=== PATIENT | male | born 1955 | race Caucasian/White ===

== ENCOUNTER 2020-10-25 14:09 | Inpatient (IN) | payer OTHER ==
[~2020-10-25] VITALS: Ht 182.9 cm; Wt 63.6 kg
[~2020-10-25 14:09] MED LIST: ALBU6.7H9 INH; ASPI81TA52 PO; BUDE10.2 INH; GEMF600T89 PO; MAGN400C PO; OMEP20CA15 PO; SPIIN INH
[2020-10-25 15:43] LABS: BASOPHILS # (AUTO) 0.1 X10'3 (0-0.2); BASOPHILS % (AUTO) 0.6 % (0-1); EOSINOPHILS # (AUTO) 0.2 X10'3 (0-0.9); EOSINOPHILS % (AUTO) 2.3 % (0-6); HEMATOCRIT 46.9 % (42.0-52.0); HEMOGLOBIN 16.3 g/dl (14.0-17.9); LYMPHOCYTES # (AUTO) 1.6 X10'3 (1.1-4.8); LYMPHOCYTES % (AUTO) 17.5 % (21-51); MEAN CORPUSCULAR HEMOGLOBIN 35.5 PG (27.0-31.0); MEAN CORPUSCULAR HGB CONC 34.7 g/dL (33.0-36.5); MEAN CORPUSCULAR VOLUME 102.4 FL (78-98); MEAN PLATELET VOLUME 8.6 FL (7.4-10.4); MONOCYTES # (AUTO) 0.9 X10'3 (0-0.9); MONOCYTES % (AUTO) 10.5 % (2-12); NEUTROPHILS # (AUTO) 6.2 X10'3 (1.8-7.7); NEUTROPHILS % (AUTO) 69.1 % (42-75); PLATELET COUNT 146 X10'3 (140-440); RED BLOOD COUNT 4.58 X10'6 (4.70-6.10); RED CELL DISTRIBUTION WIDTH 16.2 % (11.5-14.5)
[2020-10-25 15:57] LABS: ALBUMIN 3.2 G/DL (3.4-5.0); ANION GAP 8 (8-16); BLOOD UREA NITROGEN 9 MG/DL (7-18); BUN/CREATININE RATIO 9.1 (5.4-32.0); CALCIUM 9.2 MG/DL (8.5-10.1); CHLORIDE 95 MMOL/L (99-107); CREATININE 0.99 MG/DL (0.60-1.10); GLUCOSE 161 MG/DL (70-104); MAGNESIUM 1.8 MG/DL (1.5-2.4); SODIUM 131 MMOL/L (135-145); TOTAL CARBON DIOXIDE 27.7 MMOL/L (24-32); eGFR 75 ML/MIN
[2020-10-25 16:02] LABS: POTASSIUM 2.2 MMOL/L (3.5-5.1)
[2020-10-25] MEDS ORDERED: potassium Cl 20 mEq SR tablet PO STA (16:20)
[2020-10-25] MEDS ORDERED: potassium Cl 10 mEq/100mL bag IV ONE (16:20)
[2020-10-25] MEDS ORDERED: [UNRECOGNIZED DRUG - CODE] PO (16:55)
[2020-10-25] MEDS ORDERED: IBUP-1986 PO (16:55)
[2020-10-25] MEDS: potassium Cl 10 mEq/100mL bag IV SCH ×2 (19:02→20:13)
--- NOTE | 2020-10-25 19:22 | NUR ---
1st bag of K 10 meq infusing, 2nd ordered. Pt has. received 40 meq already po. Sarah at bedside. Pt awaiting hospitalist.
--- NOTE | 2020-10-25 21:07 | NUR ---
[facility] hospitalist. at bedside. just comleted the 2nd back of k 10 meq ivpb. current vss.
--- NOTE | 2020-10-25 21:17 | NUR ---
VERBAL RECEIVED FORM DR. HEBERT FOR IBUPROFEN 800 MG X1 NOW. PT TAKES THIS SCHEDULED AT HOME PER .
[2020-10-25] MEDS ORDERED: ibuprofen tablet 400 MG TABLET PO ONE (21:20)
[2020-10-25] MEDS ORDERED: mag hydrox/Alum hydrox/simeth 30ml oral suspension PO PRN (22:35)
[2020-10-25] MEDS ORDERED: magnesium 2GM in 50ml NS 50 ML IV PRN (22:35)
[2020-10-25] MEDS ORDERED: magnesium 4gm in 100ml NS 100 ML IV PRN (22:35)
[2020-10-25] MEDS ORDERED: potassium Cl 40MEQ/1/2NS 520ml 520 ML IV PRN ×2 (22:35)
--- NOTE | 2020-10-25 22:39 | NUR ---
ADMISSION ORDERS WRITTEN BY DR. GARCIA. IS AT BEDSIDE. PT WITH STABLE VS. NOW AWAITING IPA.
[2020-10-25] MEDS ORDERED: albuterol 2.5 MG/3 ML nebule NEB PRN (23:00)
[2020-10-25] MEDS: normal saline 1000ml 1,000 ML IV SCH (23:45)
[2020-10-26 00:30] VITALS: BP 115/73
[2020-10-26] MEDS: normal saline 1000ml 1,000 ML IV SCH ×2 (00:30→13:00)
[2020-10-26 01:37] LABS: ANION GAP 10 (8-16); BLOOD UREA NITROGEN 8 MG/DL (7-18); BUN/CREATININE RATIO 8.2 (5.4-32.0); CALCIUM 8.5 MG/DL (8.5-10.1); CHLORIDE 99 MMOL/L (99-107); CREATININE 0.98 MG/DL (0.60-1.10); GLUCOSE 128 MG/DL (70-104); LIPASE 862 U/L (73-393); MAGNESIUM 1.5 MG/DL (1.5-2.4); SODIUM 136 MMOL/L (135-145); TOTAL CARBON DIOXIDE 26.9 MMOL/L (24-32); eGFR 76 ML/MIN
[2020-10-26 01:40] LABS: BASOPHILS # (AUTO) 0.1 X10'3 (0-0.2); BASOPHILS % (AUTO) 1.1 % (0-1); EOSINOPHILS # (AUTO) 0.2 X10'3 (0-0.9); EOSINOPHILS % (AUTO) 2.4 % (0-6); HEMATOCRIT 42.3 % (42.0-52.0); HEMOGLOBIN 14.9 g/dl (14.0-17.9); LYMPHOCYTES % (AUTO) 25.1 % (21-51); MEAN CORPUSCULAR HEMOGLOBIN 35.4 PG (27.0-31.0); MEAN CORPUSCULAR HGB CONC 35.3 g/dL (33.0-36.5); MEAN CORPUSCULAR VOLUME 100.3 FL (78-98); MEAN PLATELET VOLUME 8.8 FL (7.4-10.4); MONOCYTES % (AUTO) 11.8 % (2-12); NEUTROPHILS # (AUTO) 4.8 X10'3 (1.8-7.7); NEUTROPHILS % (AUTO) 59.6 % (42-75); PLATELET COUNT 130 X10'3 (140-440); RED BLOOD COUNT 4.22 X10'6 (4.70-6.10); RED CELL DISTRIBUTION WIDTH 16.7 % (11.5-14.5); WHITE BLOOD COUNT 8.1 X10'3 (4.5-11.0)
[2020-10-26 01:41] LABS: POTASSIUM 2.3 MMOL/L (3.5-5.1)
--- NOTE | 2020-10-26 01:42 | NUR ---
RECEIVED PATIENT TO ROOM 4023B AT 0030 AND ASSUMED CARE. POTASSIUM DRAWN SOON I ASSUMED CARE. LAB VALUE REPORTED CRITICAL TO ME AT 0145 AT 2.3. WILL REPLACE PER PROTOCOL.
[2020-10-26] MEDS: potassium Cl 20 mEq SR tablet PO PRN ×6 (01:47→21:39)
[2020-10-26 06:00] VITALS: BP 88/44
--- NOTE | 2020-10-26 06:52 | NUR ---
Patient in room ORTHO 4023. I have received report from Jerri ADAMES and had the opportunity to ask questions and assume patient care.
[2020-10-26] MEDS: docusate sod 100mg capsule PO SCH ×3 (07:56→20:00)
[2020-10-26] MEDS: K and/or MAG REPLACEMENT MC SCH ×2 (07:59→21:00)
[2020-10-26] MEDS ORDERED: PROPRANOLOL HCL 120 MG PO SCH (08:00)
[2020-10-26] MEDS ORDERED: heparin, porcine 5000 units/ml vial SQ SCH (08:00)
[2020-10-26] MEDS: budesonide 0.5mg/2ml UD nebule IH SCH ×2 (09:00→21:52)
[2020-10-26 09:19] LABS: OCCULT BLOOD STOOL NEGATIVE (Neg)
[2020-10-26 10:34] LABS: POTASSIUM 2.7 MMOL/L (3.5-5.1)
[2020-10-26] MEDS ORDERED: diatr meglu/diatrizoate 30ml oral sol.-(3 dose) bottle PO ONE ×3 (11:35→17:35)
[2020-10-26] MEDS: albuterol 2.5 MG/3 ML nebule NEB SCH ×2 (14:21→21:52)
[2020-10-26] MEDS ORDERED: iohexol 300mg/ml 100ml inj. ONE (16:35)
[2020-10-26] MEDS ORDERED: iohexol 300 MG/1 ML 50ml polymer ONE (16:35)
[2020-10-26] MEDS ORDERED: PERFLUTREN PROTEIN-A MICROSPHR (Optison) 0.22 MG/ML 3ML VIAL IV ONE (16:40)
[2020-10-26] MEDS ORDERED: thiamine inj. 100 MG in normal saline 100ml IV soln 99 ML IV ONE (17:00)
[2020-10-26] MEDS: loperamide 2mg capsule PO PRN ×2 (17:18→23:01)
[2020-10-26 17:23] LABS: MAGNESIUM 1.7 MG/DL (1.5-2.4)
[2020-10-26] MEDS: potassium Cl 20mEq in NS 1,000 ML IV SCH (17:55)
[2020-10-26 18:00] VITALS: BP 125/59
[2020-10-26] MEDS ORDERED: heparin 10,000 units/1 ML INJ IV PRN (18:05)
[2020-10-26] MEDS ORDERED: heparin 10,000 units/1 ML INJ IV ONE (18:05)
[2020-10-26 18:19] LABS: HIV ANTIBODY 1&2 RAPID NON-REACTIVE (Neg)
[2020-10-26 18:28] LABS: % IRON SATURATION 50 % (11-46); IRON 103 UG/DL (53-167); TOTAL IRON BINDING CAPACITY 205 UG/DL (259-388)
--- NOTE | 2020-10-26 18:48 | NUR ---
Problems reprioritized. Patient report given, questions answered & plan of care reviewed with Esteban ADAMES.
[2020-10-26] MEDS ORDERED: loperamide 2mg capsule PO ONE (19:30)
[2020-10-26 19:38] LABS: CLARITY,URINE CLEAR (Clear); COLOR,URINE YELLOW (Yellow); GLUCOSE, URINE NEGATIVE (Neg); KETONES,URINE NEGATIVE (Neg); LEUKOCYTE ESTERASE ,URINE NEGATIVE (Neg); NITRITES, URINE NEGATIVE (Neg); OCCULT BLOOD,URINE SMALL (Neg); PH,URINE 7.5 (4.8-8.0); PROTEIN,URINE NEGATIVE (Neg); UROBILINOGEN,URINE 0.2 E.U/dL (0.2-1.0)
[2020-10-26 19:46] LABS: UA COLLECTION TYPE VOIDED
[2020-10-26 19:47] LABS: BACTERIA,URINE NONE SEEN /HPF (Neg); RBC,URINE 0-2 /HPF (0-2); SQUAMOUS EPITHELIAL CELL,UR FEW /LPF (FEW); WBC,URINE 0-4 /HPF (0-4)
--- NOTE | 2020-10-26 20:30 | NUR ---
labs drawn for PTT prior to heparin start. hemolized in lab. need to redraw. no baseline levels noted. will wait for accurate PTT. went home. educated on heparin. verbalized understanding of bleeding risk. stool and urine samples obtained.
[2020-10-26] MEDS: heparin 25,000 UNIT/250ml bag 250 ML IV SCH (21:30)
[2020-10-26] MEDS: thiamine 100mg tablet PO SCH (21:38)
[2020-10-26 22:46] VITALS: BP 117/67
[2020-10-27] MEDS: potassium Cl 20 mEq SR tablet PO PRN ×4 (01:45→23:39)
[2020-10-27] MEDS: potassium Cl 20mEq in NS 1,000 ML IV SCH ×3 (01:51→20:57)
[2020-10-27] MEDS: albuterol 2.5 MG/3 ML nebule NEB SCH ×4 (03:38→20:15)
[2020-10-27 04:00] LABS: BASOPHILS # (AUTO) 0.1 X10'3 (0-0.2); BASOPHILS % (AUTO) 1.4 % (0-1); EOSINOPHILS # (AUTO) 0.2 X10'3 (0-0.9); EOSINOPHILS % (AUTO) 2.6 % (0-6); HEMATOCRIT 42.8 % (42.0-52.0); HEMOGLOBIN 14.6 g/dl (14.0-17.9); LYMPHOCYTES # (AUTO) 1.6 X10'3 (1.1-4.8); LYMPHOCYTES % (AUTO) 19.3 % (21-51); MEAN CORPUSCULAR HEMOGLOBIN 35.2 PG (27.0-31.0); MEAN CORPUSCULAR HGB CONC 34.1 g/dL (33.0-36.5); MEAN CORPUSCULAR VOLUME 103.3 FL (78-98); MEAN PLATELET VOLUME 9.1 FL (7.4-10.4); MONOCYTES # (AUTO) 0.8 X10'3 (0-0.9); MONOCYTES % (AUTO) 9.9 % (2-12); NEUTROPHILS # (AUTO) 5.4 X10'3 (1.8-7.7); NEUTROPHILS % (AUTO) 66.8 % (42-75); PLATELET COUNT 122 X10'3 (140-440); RED BLOOD COUNT 4.15 X10'6 (4.70-6.10); RED CELL DISTRIBUTION WIDTH 16.6 % (11.5-14.5)
[2020-10-27 04:19] LABS: ALANINE AMINOTRANSFERASE 26 U/L (12-78); ALBUMIN 3.1 G/DL (3.4-5.0); ALKALINE PHOSPHATASE 67 IU/L (46-116); ANION GAP 12 (8-16); ASPARTATE AMINO TRANSFERASE 39 U/L (10-37); BILIRUBIN,TOTAL 0.7 MG/DL (0.1-1.0); BLOOD UREA NITROGEN 5 MG/DL (7-18); BUN/CREATININE RATIO 6.3 (5.4-32.0); CALCIUM 7.9 MG/DL (8.5-10.1); CHLORIDE 109 MMOL/L (99-107); CREATININE 0.79 MG/DL (0.60-1.10); GLUCOSE 92 MG/DL (70-104); MAGNESIUM 1.4 MG/DL (1.5-2.4); POTASSIUM 3.2 MMOL/L (3.5-5.1); SODIUM 141 MMOL/L (135-145); TOTAL CARBON DIOXIDE 19.6 MMOL/L (24-32); TOTAL PROTEIN 6.2 G/DL (6.4-8.2); eGFR > 90 ML/MIN
[2020-10-27] MEDS: loperamide 2mg capsule PO PRN ×4 (05:45→23:38)
[2020-10-27 06:00] VITALS: BP 114/71
--- NOTE | 2020-10-27 06:46 | NUR ---
reported to days. noted pt PTT came to 40 - so ok to start heparin 3 units lower. noted to day RN. awaiting stool results.
[2020-10-27] MEDS: budesonide 0.5mg/2ml UD nebule IH SCH ×2 (07:00→20:15)
--- NOTE | 2020-10-27 07:00 | NUR ---
PT. REFUSED MORNING svn. STATES HE DOESN'T NEED ONE AT THIS TIME
[2020-10-27] MEDS: docusate sod 100mg capsule PO SCH ×2 (08:00→20:00)
[2020-10-27] MEDS: thiamine 100mg tablet PO SCH ×2 (08:40→19:59)
[2020-10-27] MEDS: propranolol LA 60 MG cap.SA.24H PO SCH (08:40)
[2020-10-27] MEDS: multivitamins, therapeutics tablet PO SCH (08:40)
[2020-10-27] MEDS: folic acid 1mg tablet PO SCH (08:40)
[2020-10-27] MEDS: K and/or MAG REPLACEMENT MC SCH ×2 (08:47→20:00)
[2020-10-27 10:00] VITALS: BP 113/67
[2020-10-27] MEDS: magnesium Cl slow-release 64mg tablet PO PRN ×2 (10:39→20:00)
[2020-10-27 11:05] LABS: CARCINOEMBRYONIC ANTIGEN 11.2 ng/mL (0.0-4.7); PSA, ULTRASENSITIVE W/O SERIAL 0.84 ng/mL (0.000-4.000)
[2020-10-27 11:15] LABS: C DIFF ANTIGEN NEGATIVE (NEGATIVE); C DIFF SPECIMEN=DIARRHEA? ACCEPTABLE; C DIFFICILE TOXINS A&B NEGATIVE (Neg)
[2020-10-27] MEDS: acetaminophen 325mg tablet PO PRN ×3 (11:54→23:39)
--- NOTE | 2020-10-27 16:29 | NUR ---
Nutrition consult: Pt reports wt loss with decreased appetite per H&P/MD note however denied wt loss or decreased appetite per malnutrition risk screen with RN. Pt seen at bedside with SO present reports UBW 170 lbs with ABW 140-145 lbs, though pt unsure of when wt was last obtained. Current documented wt in EMR is not scaled and only scaled wt hx in EMR is 162 lbs in 2015. Pt reports poor appetite for a few months [employer] though states appetite is improving. Pt on a regular diet with 100% PO intake of two most recent meals. Pt with no visible significant fat or muscle wasting. No documented decrease in muscle strength or edema. Pt currently lacks a minimum of two criteria for malnutrition. RD discussed options for increasing PO intake including ONS recommendations. Pt verbalized understanding and declined ONS coupons at this time stating his son will be getting Boost from [employer] for him. Pt denies food preferences, food allergies, or difficulty chewing/swallowing. Diarrhea resolving per pt. RD contact information provided and pt encouraged to reach out if needed. Will continue to follow. Addendum: 10/27/20 at 1631 [address] Amended: Links added.
[2020-10-27] MEDS: heparin 25,000 UNIT/250ml bag 250 ML IV SCH (16:49)
[2020-10-27 18:00] VITALS: BP 111/68
--- NOTE | 2020-10-27 18:30 | NUR ---
Patient in room ORTHO 4023. I have received report from Jocelyn ADAMES and had the opportunity to ask questions and assume patient care.
--- NOTE | 2020-10-27 18:43 | NUR ---
PAGER ID: [phone] MESSAGE: Jocelyn [email or web address] daisy Mr Olmstead in [id number]- do you want to continue the tele order? it was for 24 hours Addendum: 10/27/20 at 1843 by Kamla De La Torre RN per Manuel please keep tele on.
[2020-10-27] MEDS: apixaban 5mg tablet PO SCH (19:59)
[2020-10-27 22:00] VITALS: BP 95/60
[2020-10-28] MEDS: albuterol 2.5 MG/3 ML nebule NEB SCH ×4 (02:00→20:58)
[2020-10-28] MEDS: potassium Cl 20mEq in NS 1,000 ML IV SCH (05:43)
[2020-10-28] MEDS: acetaminophen 325mg tablet PO PRN ×3 (05:57→20:25)
[2020-10-28] MEDS: loperamide 2mg capsule PO PRN ×3 (05:57→20:24)
[2020-10-28 06:00] VITALS: BP 105/59
--- NOTE | 2020-10-28 06:27 | NUR ---
Problems reprioritized. Patient report given, questions answered & plan of care reviewed with Zafar ADAMES and Latoya ADAMES.
[2020-10-28] MEDS: folic acid 1mg tablet PO SCH (07:11)
[2020-10-28] MEDS: multivitamins, therapeutics tablet PO SCH (07:12)
[2020-10-28] MEDS: apixaban 5mg tablet PO SCH ×2 (07:12→19:16)
[2020-10-28] MEDS: propranolol LA 60 MG cap.SA.24H PO SCH (07:13)
[2020-10-28] MEDS: thiamine 100mg tablet PO SCH ×2 (07:13→19:16)
[2020-10-28] MEDS: docusate sod 100mg capsule PO SCH ×2 (07:19→19:26)
[2020-10-28 07:32] LABS: BASOPHILS # (AUTO) 0.1 X10'3 (0-0.2); EOSINOPHILS # (AUTO) 0.2 X10'3 (0-0.9); EOSINOPHILS % (AUTO) 3.5 % (0-6); HEMOGLOBIN 14.1 g/dl (14.0-17.9); LYMPHOCYTES # (AUTO) 1.8 X10'3 (1.1-4.8); LYMPHOCYTES % (AUTO) 26.5 % (21-51); NEUTROPHILS # (AUTO) 3.9 X10'3 (1.8-7.7); PLATELET COUNT 138 X10'3 (140-440)
[2020-10-28 07:34] LABS: BASOPHILS % (AUTO) 1.4 % (0-1); MEAN CORPUSCULAR HEMOGLOBIN 35.5 PG (27.0-31.0); MEAN CORPUSCULAR HGB CONC 33.5 g/dL (33.0-36.5); MEAN CORPUSCULAR VOLUME 105.9 FL (78-98); MEAN PLATELET VOLUME 9.2 FL (7.4-10.4); MONOCYTES # (AUTO) 0.7 X10'3 (0-0.9); MONOCYTES % (AUTO) 10.7 % (2-12); NEUTROPHILS % (AUTO) 57.9 % (42-75); RED BLOOD COUNT 3.97 X10'6 (4.70-6.10); RED CELL DISTRIBUTION WIDTH 16.9 % (11.5-14.5); WHITE BLOOD COUNT 6.8 X10'3 (4.5-11.0)
[2020-10-28] MEDS: budesonide 0.5mg/2ml UD nebule IH SCH ×2 (07:54→20:58)
[2020-10-28 07:56] LABS: ALANINE AMINOTRANSFERASE 27 U/L (12-78); ALBUMIN 2.7 G/DL (3.4-5.0); ALBUMIN/GLOBULIN RATIO 0.9 (1.1-1.5); ALKALINE PHOSPHATASE 52 IU/L (46-116); ANION GAP 12 (8-16); ASPARTATE AMINO TRANSFERASE 32 U/L (10-37); BILIRUBIN,TOTAL 0.5 MG/DL (0.1-1.0); BLOOD UREA NITROGEN 3 MG/DL (7-18); BUN/CREATININE RATIO 4.3 (5.4-32.0); CALCIUM 7.7 MG/DL (8.5-10.1); CHLORIDE 111 MMOL/L (99-107); GLUCOSE 86 MG/DL (70-104); LIPASE 1330 U/L (73-393); MAGNESIUM 1.4 MG/DL (1.5-2.4); POTASSIUM 3.7 MMOL/L (3.5-5.1); SODIUM 141 MMOL/L (135-145); TOTAL PROTEIN 5.8 G/DL (6.4-8.2); eGFR > 90 ML/MIN
[2020-10-28] MEDS: magnesium Cl slow-release 64mg tablet PO PRN ×2 (08:32→19:21)
[2020-10-28] MEDS: K and/or MAG REPLACEMENT MC SCH ×2 (08:33→20:00)
[2020-10-28 10:00] VITALS: BP 114/72
[2020-10-28] MEDS: sodium bicarbonate (8.4%) inj. 100 MEQ in dextrose 5%-water 1,000 ML IV SCH ×2 (12:18→22:19)
[2020-10-28 15:25] LABS: HBSAG SCREEN Negative (Negative); HEP A AB, IGM Negative (Negative); HEPATITIS C ANTIBODY >11.0 s/co ratio (0.0-0.9)
[2020-10-28 18:00] VITALS: BP 122/73
--- NOTE | 2020-10-28 18:31 | NUR ---
Problems reprioritized. Patient report given, questions answered & plan of care reviewed with Kimberly ADAMES.
--- NOTE | 2020-10-28 19:06 | NUR ---
Patient in room ORTHO 4023. I have received report from DELMI RN'S and had the opportunity to ask questions and assume patient care.
[2020-10-28 22:00] VITALS: BP 120/66
[2020-10-29] MEDS: albuterol 2.5 MG/3 ML nebule NEB SCH ×4 (02:00→20:00)
[2020-10-29 06:00] VITALS: BP 100/49
[2020-10-29 06:28] LABS: BASOPHILS # (AUTO) 0.1 X10'3 (0-0.2); BASOPHILS % (AUTO) 1.9 % (0-1); EOSINOPHILS # (AUTO) 0.2 X10'3 (0-0.9); EOSINOPHILS % (AUTO) 3.7 % (0-6); HEMATOCRIT 36.8 % (42.0-52.0); HEMOGLOBIN 12.7 g/dl (14.0-17.9); LYMPHOCYTES # (AUTO) 1.4 X10'3 (1.1-4.8); MEAN CORPUSCULAR HEMOGLOBIN 35.8 PG (27.0-31.0); MEAN CORPUSCULAR HGB CONC 34.5 g/dL (33.0-36.5); MEAN CORPUSCULAR VOLUME 103.7 FL (78-98); MEAN PLATELET VOLUME 8.9 FL (7.4-10.4); MONOCYTES # (AUTO) 0.7 X10'3 (0-0.9); MONOCYTES % (AUTO) 12.3 % (2-12); NEUTROPHILS # (AUTO) 3.5 X10'3 (1.8-7.7); NEUTROPHILS % (AUTO) 58.1 % (42-75); PLATELET COUNT 116 X10'3 (140-440); RED BLOOD COUNT 3.55 X10'6 (4.70-6.10); RED CELL DISTRIBUTION WIDTH 16.8 % (11.5-14.5)
--- NOTE | 2020-10-29 06:49 | NUR ---
Patient in room ORTHO 4023. I have received report from ZACARIAS JUNE and had the opportunity to ask questions and assume patient care.
--- NOTE | 2020-10-29 06:52 | NUR ---
Problems reprioritized. Patient report given, questions answered & plan of care reviewed with DAREN & SOBIA RN'S.
--- NOTE | 2020-10-29 06:59 | NUR ---
Patient in room ORTHO 4023B. I have received report from ZACARIAS Harris and had the opportunity to ask questions and assume patient care. Mariano Huizar RN will provide primary care. I will monitor all care and assist when needed.
[2020-10-29 07:00] LABS: ALANINE AMINOTRANSFERASE 21 U/L (12-78); ALBUMIN 2.3 G/DL (3.4-5.0); ALBUMIN/GLOBULIN RATIO 0.9 (1.1-1.5); ALKALINE PHOSPHATASE 44 IU/L (46-116); ANION GAP 9 (8-16); ASPARTATE AMINO TRANSFERASE 19 U/L (10-37); BILIRUBIN,TOTAL 0.5 MG/DL (0.1-1.0); BLOOD UREA NITROGEN 2 MG/DL (7-18); BUN/CREATININE RATIO 3.2 (5.4-32.0); CALCIUM 7.4 MG/DL (8.5-10.1); CHLORIDE 109 MMOL/L (99-107); CHOL/HDL RATIO 1.8 (0.00-4.99); CHOLESTEROL 98 MG/DL (0-200); CREATININE 0.62 MG/DL (0.60-1.10); GLUCOSE 106 MG/DL (70-104); HDL CHOLESTEROL 54 MG/DL (35-60); LDL CHOLESTEROL 33 MG/DL (50-100); LIPASE 927 U/L (73-393); MAGNESIUM 1.2 MG/DL (1.5-2.4); POTASSIUM 3.3 MMOL/L (3.5-5.1); SODIUM 140 MMOL/L (135-145); TOTAL CARBON DIOXIDE 21.8 MMOL/L (24-32); TOTAL PROTEIN 4.8 G/DL (6.4-8.2); TRIGLYCERIDES 54 MG/DL (20-135); eGFR > 90 ML/MIN
--- NOTE | 2020-10-29 07:54 | NUR ---
Page Sent PAGER ID: [phone] MESSAGE: Regarding 4023B- Jer Olmstead+ 3.3 Mag 1.2- No Protocol orders in place. Thanks!
[2020-10-29] MEDS: budesonide 0.5mg/2ml UD nebule IH SCH ×2 (08:00→20:00)
[2020-10-29] MEDS: K and/or MAG REPLACEMENT MC SCH ×3 (08:00→20:00)
[2020-10-29] MEDS: sodium bicarbonate (8.4%) inj. 100 MEQ in dextrose 5%-water 1,000 ML IV SCH ×2 (08:03→20:12)
[2020-10-29] MEDS: thiamine 100mg tablet PO SCH ×2 (08:04→20:14)
[2020-10-29] MEDS: loperamide 2mg capsule PO PRN (08:04)
[2020-10-29] MEDS: multivitamins, therapeutics tablet PO SCH (08:04)
[2020-10-29] MEDS: docusate sod 100mg capsule PO SCH ×2 (08:04→08:13)
[2020-10-29] MEDS: folic acid 1mg tablet PO SCH (08:04)
[2020-10-29] MEDS ORDERED: potassium Cl 20 mEq SR tablet PO PRN (08:10)
[2020-10-29] MEDS ORDERED: potassium Cl 40MEQ/1/2NS 520ml 520 ML IV PRN (08:10)
[2020-10-29] MEDS ORDERED: magnesium 4gm in 100ml NS 100 ML IV PRN ×2 (08:10→19:20)
[2020-10-29] MEDS: apixaban 5mg tablet PO SCH ×2 (08:12→20:16)
[2020-10-29] MEDS: propranolol LA 60 MG cap.SA.24H PO SCH (08:13)
[2020-10-29] MEDS: potassium Cl 20 mEq SR tablet PO PRN ×3 (08:18→17:38)
[2020-10-29] MEDS: acetaminophen 325mg tablet PO PRN ×3 (09:49→21:53)
[2020-10-29 11:00] VITALS: BP 101/50
--- NOTE | 2020-10-29 13:14 | NUR ---
Page Sent PAGER ID: [phone] MESSAGE: Gaye [id number] Regarding RM 4023 Ol[place]stead, C- Pt continues to have loose/liquid stool. States that Imodium is ineffective. Can we increase to 2 tabs? Thanks!
[2020-10-29] MEDS: diphenoxylate/atropine tablet (Lomotil) PO PRN ×2 (15:44→21:50)
[2020-10-29 17:00] VITALS: BP 113/62
--- NOTE | 2020-10-29 18:27 | NUR ---
Problems reprioritized. Patient report given ZACARIAS WADE questions answered & plan of care reviewed with .
--- NOTE | 2020-10-29 18:29 | NUR ---
Orientee documentation: I have reviewed and agree with all interventions, assessments performed and documented by ZACARIAS Huizar. Problems reprioritized. Patient report given, questions answered & plan of care reviewed with ZACARIAS Cooley.
--- NOTE | 2020-10-29 18:43 | NUR ---
Patient in room ORTHO 4023. I have received report from Evelynern and dexter Huizra and had the opportunity to ask questions and assume patient care.
[2020-10-29] MEDS ORDERED: magnesium Cl slow-release 64mg tablet PO PRN (19:20)
[2020-10-29] MEDS ORDERED: magnesium 2GM in 50ml NS 50 ML IV PRN (19:20)
[2020-10-29 22:00] VITALS: BP 97/64
[2020-10-30] MEDS: albuterol 2.5 MG/3 ML nebule NEB SCH ×2 (02:00→07:53)
[2020-10-30 05:43] LABS: EOSINOPHILS # (AUTO) 0.2 X10'3 (0-0.9); HEMOGLOBIN 13.8 g/dl (14.0-17.9); LYMPHOCYTES # (AUTO) 1.4 X10'3 (1.1-4.8); MEAN CORPUSCULAR HEMOGLOBIN 35.5 PG (27.0-31.0); MONOCYTES # (AUTO) 0.7 X10'3 (0-0.9)
[2020-10-30 05:46] LABS: BASOPHILS % (AUTO) 0.8 % (0-1); EOSINOPHILS % (AUTO) 3.9 % (0-6); HEMATOCRIT 40.5 % (42.0-52.0); LYMPHOCYTES % (AUTO) 27.4 % (21-51); MEAN CORPUSCULAR HGB CONC 33.9 g/dL (33.0-36.5); MEAN CORPUSCULAR VOLUME 104.8 FL (78-98); MEAN PLATELET VOLUME 8.8 FL (7.4-10.4); NEUTROPHILS # (AUTO) 2.8 X10'3 (1.8-7.7); NEUTROPHILS % (AUTO) 54.9 % (42-75); PLATELET COUNT 126 X10'3 (140-440); RED BLOOD COUNT 3.87 X10'6 (4.70-6.10); RED CELL DISTRIBUTION WIDTH 16.8 % (11.5-14.5)
[2020-10-30 05:56] LABS: ALANINE AMINOTRANSFERASE 24 U/L (12-78); ALBUMIN 2.5 G/DL (3.4-5.0); ALKALINE PHOSPHATASE 55 IU/L (46-116); ANION GAP 6 (8-16); ASPARTATE AMINO TRANSFERASE 40 U/L (10-37); BILIRUBIN,TOTAL 0.4 MG/DL (0.1-1.0); BLOOD UREA NITROGEN 1 MG/DL (7-18); BUN/CREATININE RATIO 1.5 (5.4-32.0); CALCIUM 7.6 MG/DL (8.5-10.1); CHLORIDE 108 MMOL/L (99-107); CREATININE 0.68 MG/DL (0.60-1.10); GLUCOSE 115 MG/DL (70-104); LIPASE 444 U/L (73-393); MAGNESIUM 1.9 MG/DL (1.5-2.4); SODIUM 142 MMOL/L (135-145); TOTAL CARBON DIOXIDE 28.1 MMOL/L (24-32); TOTAL PROTEIN 5.1 G/DL (6.4-8.2); eGFR > 90 ML/MIN
[2020-10-30 05:58] LABS: POTASSIUM 3.9 MMOL/L (3.5-5.1)
[2020-10-30 06:00] VITALS: BP 106/64
--- NOTE | 2020-10-30 06:31 | NUR ---
Problems reprioritized. Patient report given, questions answered & plan of care reviewed with ZACARIAS MERCEDES AND ZACARIAS RAMSAY.
--- NOTE | 2020-10-30 06:38 | NUR ---
Patient in room ORTHO 4023. I have received report from ZACARIAS WADE and had the opportunity to ask questions and assume patient care.
[2020-10-30] MEDS: thiamine 100mg tablet PO SCH (07:24)
[2020-10-30] MEDS: folic acid 1mg tablet PO SCH (07:24)
[2020-10-30] MEDS: multivitamins, therapeutics tablet PO SCH (07:24)
[2020-10-30] MEDS: apixaban 5mg tablet PO SCH (07:25)
[2020-10-30] MEDS: propranolol LA 60 MG cap.SA.24H PO SCH (07:26)
[2020-10-30] MEDS: docusate sod 100mg capsule PO SCH (07:26)
[2020-10-30] MEDS: sodium bicarbonate (8.4%) inj. 100 MEQ in dextrose 5%-water 1,000 ML IV SCH (07:35)
[2020-10-30] MEDS: budesonide 0.5mg/2ml UD nebule IH SCH (07:53)
[2020-10-30] MEDS: K and/or MAG REPLACEMENT MC SCH ×2 (08:00)
[2020-10-30] MEDS ORDERED: APIX5TAB3 PO (09:54)
--- NOTE | 2020-10-30 10:50 | NUR ---
Reviewed discharge instructions, new medication-written script from MD given to patient, educational material-Pt and agreeable. Tele removed, 20g PIV removed from (R) wrist without complication, tip intact. Pt left facility in stable condition.
--- NOTE | 2020-10-30 11:01 | NUR ---
ORIENTEE documentation: I have reviewed and agree with all interventions, assessments performed and documented by ZACARIAS RAMSAY. PT DC IN STABLE CONDITION.
[2020-11-03] MEDS ORDERED: apixaban 5mg tablet PO SCH (20:00)
== END 2020-10-30 10:40 | disposition home or self-care (01) | DRG 438 ==
LOC: ER 14:09 → ED HOLD 22:31 → OBSVTOIN 22:31 → ORTHO 4S 10-26 00:20
PROVIDERS: ADMIT Internal Medicine; ATTEND Internal Medicine
PROC: BW251ZZ Computerized Tomography (CT Scan) of Chest, Abdomen and Pelvis using Low Osmolar Contrast (ICD-10-PCS; principal; 2020-10-26)
DX: K85.90 Acute pancreatitis without necrosis or infection, unspecified (principal); I26.99 Other pulmonary embolism without acute cor pulmonale; E87.1 Hypo-osmolality and hyponatremia; Z68.1 Body mass index [BMI] 19.9 or less, adult; R64 Cachexia; B19.20 Unspecified viral hepatitis C without hepatic coma; E87.6 Hypokalemia; F17.210 Nicotine dependence, cigarettes, uncomplicated; R01.1 Cardiac murmur, unspecified; F41.9 Anxiety disorder, unspecified; I10 Essential (primary) hypertension; I51.3 Intracardiac thrombosis, not elsewhere classified; I71.4 Abdominal aortic aneurysm, without rupture; D53.9 Nutritional anemia, unspecified; J43.9 Emphysema, unspecified; R19.7 Diarrhea, unspecified; K59.00 Constipation, unspecified; R97.0 Elevated carcinoembryonic antigen [CEA]; K76.0 Fatty (change of) liver, not elsewhere classified; K80.20 Calculus of gallbladder without cholecystitis without obstruction; K86.89 Other specified diseases of pancreas; Z76.82 Awaiting organ transplant status; Z79.01 Long term (current) use of anticoagulants; Z79.51 Long term (current) use of inhaled steroids; Z88.8 Allergy status to other drugs, medicaments and biological substances; Z82.5 Family history of asthma and other chronic lower respiratory diseases; Z80.9 Family history of malignant neoplasm, unspecified; Z71.6 Tobacco abuse counseling; Z79.899 Other long term (current) drug therapy
CPT/HCPCS: 36415; 70470; 71045; 71260; 74177; 76700; 80048; 80053; 80061; 80074; 81001; 82103; 82272; 82378; 82607; 82948; 83540; 83550; 83690; 83735; 84132; 84153; 84443; 84484; 85025; 85610; 85730; 86703; 87045; 87046; 87081; 87324; 87449; 89055; 93005; 93306; 93970; 94640; 94760; 97116; 97161; 97530; 97535; G0378; J1644; J3411; J3475; J3480; J7030; J7626; Q9963; Q9967

== ENCOUNTER 2021-02-12 14:17 | Inpatient (IN) | payer OTHER ==
[~2021-02-12] VITALS: Ht 182.9 cm; Wt 68.2 kg
[2021-02-12] MEDS: potassium Cl 10 mEq/100mL bag IV SCH ×2 (12:00→22:34)
[~2021-02-12 14:17] MED LIST changes: +APIX5TAB3 PO; -ASPI81TA52 PO; -GEMF600T89 PO; -MAGN400C PO; -OMEP20CA15 PO; -SPIIN INH; +[UNRECOGNIZED DRUG - CODE] PO
[2021-02-12] MEDS ORDERED: normal saline 1000ML IV soln IV ONE (15:05)
[2021-02-12] MEDS ORDERED: NORepinephrine inj. 8 MG in dextrose 5%-water 242 ML IV SCH (15:55)
[2021-02-12 16:01] LABS: BASOPHILS # (AUTO) 0.1 X10'3 (0-0.2); BASOPHILS % (AUTO) 0.7 % (0-1); EOSINOPHILS # (AUTO) 0.4 X10'3 (0-0.9); EOSINOPHILS % (AUTO) 2.7 % (0-6); HEMATOCRIT 43.3 % (42.0-52.0); HEMOGLOBIN 15.2 g/dl (14.0-17.9); LYMPHOCYTES # (AUTO) 1.2 X10'3 (1.1-4.8); LYMPHOCYTES % (AUTO) 8.7 % (21-51); MEAN CORPUSCULAR HEMOGLOBIN 35.7 PG (27.0-31.0); MEAN CORPUSCULAR HGB CONC 35.1 g/dL (33.0-36.5); MEAN CORPUSCULAR VOLUME 101.8 FL (78-98); MONOCYTES # (AUTO) 1.2 X10'3 (0-0.9); NEUTROPHILS # (AUTO) 10.9 X10'3 (1.8-7.7); NEUTROPHILS % (AUTO) 78.9 % (42-75); PLATELET COUNT 208 X10'3 (140-440); RED BLOOD COUNT 4.25 X10'6 (4.70-6.10); RED CELL DISTRIBUTION WIDTH 15.1 % (11.5-14.5); WHITE BLOOD COUNT 13.8 X10'3 (4.5-11.0)
--- NOTE | 2021-02-12 16:01 | NUR ---
Patient condition (hypotension 83/54 HR 54) with primary PA and supervising Dawood VOGT. Levo ordered. Discussed patient continuing to get 3ed liter of IV fluids. Continuing to monitor patient.
[2021-02-12 16:09] LABS: ALANINE AMINOTRANSFERASE 14 U/L (12-78); ALBUMIN 2.3 G/DL (3.4-5.0); ALBUMIN/GLOBULIN RATIO 0.7 (1.1-1.5); ALKALINE PHOSPHATASE 75 IU/L (46-116); ANION GAP 13 (8-16); ASPARTATE AMINO TRANSFERASE 16 U/L (10-37); BILIRUBIN,TOTAL 1.6 MG/DL (0.1-1.0); BLOOD UREA NITROGEN 14 MG/DL (7-18); BUN/CREATININE RATIO 12.6 (5.4-32.0); CALCIUM 7.8 MG/DL (8.5-10.1); CHLORIDE 96 MMOL/L (99-107); CREATININE 1.11 MG/DL (0.60-1.10); GLUCOSE 114 MG/DL (70-104); LIPASE 99 U/L (73-393); SODIUM 132 MMOL/L (135-145); TOTAL CARBON DIOXIDE 22.7 MMOL/L (24-32); TOTAL PROTEIN 5.7 G/DL (6.4-8.2); eGFR 66 ML/MIN
[2021-02-12] MEDS ORDERED: CALCIUM GLUC 1gm/50ml NACL,iso 50 ML IV ONE (16:10)
[2021-02-12 16:11] LABS: POTASSIUM 1.9 MMOL/L (3.5-5.1)
[2021-02-12] MEDS ORDERED: iohexol 300mg/ml 100ml inj. ONE (16:15)
[2021-02-12] MEDS ORDERED: potassium Cl 10 mEq/100mL bag IV ONE (16:15)
[2021-02-12] MEDS ORDERED: potassium Cl 20 mEq SR tablet PO ONE (16:15)
[2021-02-12] MEDS ORDERED: magnesium 2GM in 50ml NS 50 ML IV ONE (16:15)
[2021-02-12] MEDS ORDERED: POTA-207 PO (16:37)
[2021-02-12] MEDS ORDERED: APIX5TAB3 PO (16:37)
[2021-02-12 17:02] LABS: CLARITY,URINE CLOUDY (Clear); COLOR,URINE YELLOW (Yellow); UA COLLECTION TYPE CLN CATCH MIDSTREAM
[2021-02-12 17:03] LABS: GLUCOSE, URINE NEGATIVE (Neg); KETONES,URINE NEGATIVE (Neg); NITRITES, URINE NEGATIVE (Neg); OCCULT BLOOD,URINE Large (Neg); PROTEIN,URINE NEGATIVE (Neg); UROBILINOGEN,URINE 0.2 E.U/dL (0.2-1.0)
[2021-02-12 17:06] LABS: LEUKOCYTE ESTERASE ,URINE TRACE (Neg)
[2021-02-12 17:14] LABS: RBC,URINE 50-100 /HPF (0-2); SQUAMOUS EPITHELIAL CELL,UR FEW /LPF (FEW); URINE AMPHETAMINE SCREEN NEGATIVE (Neg); URINE BARBITUATE SCREEN NEGATIVE (Neg); URINE BENZODIAZEPINES SCREEN NEGATIVE (Neg); URINE CANNABINOID SCREEN POSITIVE (Neg); URINE COCAINE SCREEN NEGATIVE (Neg); URINE METHADONE SCREEN NEGATIVE (Neg); URINE OPIATE SCREEN NEGATIVE (Neg); URINE PHENCYCLIDINE SCREEN NEGATIVE (Neg)
[2021-02-12 17:17] LABS: BACTERIA,URINE NONE SEEN /HPF (Neg); TRANSITIONAL EPI CELLS,URINE FEW /HPF; WBC CLUMPS,URINE FEW /HPF (NEGATIVE)
[2021-02-12] MEDS ORDERED: piperacillin/tazo 3.375gm/50ml 50 ML IV ONE (17:30)
--- NOTE | 2021-02-12 18:16 | NUR ---
DR CASAS AT BEDSIDE TO INSERT CENTRAL LINE, AT BEDSIDE.
[2021-02-12] MEDS: NORepinephrine 8mg/ 250ml NS 250 ML IV SCH (18:50)
[2021-02-12] MEDS ORDERED: acetaminophen 325mg tablet PO ONE (19:45)
[2021-02-12] MEDS ORDERED: ringers solution, lacted 1,000 ML IV ONE (20:20)
[2021-02-12] MEDS ORDERED: potassium Cl 20 mEq SR tablet PO PRN (20:25)
[2021-02-12] MEDS ORDERED: morphine 4 MG/ML inj SYRINge IV PRN (20:25)
[2021-02-12] MEDS ORDERED: morphine 2 MG/ML inj. syringe IV PRN (20:25)
[2021-02-12] MEDS ORDERED: acetaminophen 325mg tablet PO PRN (20:25)
[2021-02-12 21:33] LABS: POTASSIUM 1.9 MMOL/L (3.5-5.1)
[2021-02-12] MEDS: ringers solution, lacted 1,000 ML IV SCH (22:10)
--- NOTE | 2021-02-12 22:10 | NUR ---
The patient, CHIKIS KNUTSON, 65 y/o, M admitted by SALMA ESCAMILLA MD, was given written information regarding hospital policies, unit procedures and contact persons. See Admission information.
[2021-02-12] MEDS: K, MAG and/or Phos replacement - Verify level? MC SCH (22:18)
[2021-02-12 23:00] VITALS: BP 96/37
[2021-02-12] MEDS ORDERED: potassium Cl 10 mEq/100mL bag IV SCH (23:45)
[2021-02-13] VITALS (24 sets, daily range): BP systolic 86–128; BP diastolic 30–87
[2021-02-13] MEDS: piperacillin/tazo 3.375gm/50ml 50 ML IV SCH ×3 (00:45→16:12)
[2021-02-13 03:36] LABS: BASOPHILS # (AUTO) 0.1 X10'3 (0-0.2); BASOPHILS % (AUTO) 0.9 % (0-1); EOSINOPHILS # (AUTO) 0.6 X10'3 (0-0.9); EOSINOPHILS % (AUTO) 3.8 % (0-6); HEMATOCRIT 37.9 % (42.0-52.0); HEMOGLOBIN 13.3 g/dl (14.0-17.9); LYMPHOCYTES # (AUTO) 1.3 X10'3 (1.1-4.8); LYMPHOCYTES % (AUTO) 8.3 % (21-51); MEAN CORPUSCULAR HEMOGLOBIN 35.7 PG (27.0-31.0); MEAN CORPUSCULAR HGB CONC 35.1 g/dL (33.0-36.5); MEAN CORPUSCULAR VOLUME 101.5 FL (78-98); MEAN PLATELET VOLUME 9.9 FL (7.4-10.4); MONOCYTES # (AUTO) 1.5 X10'3 (0-0.9); MONOCYTES % (AUTO) 9.2 % (2-12); NEUTROPHILS # (AUTO) 12.6 X10'3 (1.8-7.7); NEUTROPHILS % (AUTO) 77.8 % (42-75); PLATELET COUNT 226 X10'3 (140-440); RED BLOOD COUNT 3.73 X10'6 (4.70-6.10); RED CELL DISTRIBUTION WIDTH 15.1 % (11.5-14.5); WHITE BLOOD COUNT 16.2 X10'3 (4.5-11.0)
[2021-02-13 03:53] LABS: ALANINE AMINOTRANSFERASE 10 U/L (12-78); ALBUMIN 1.9 G/DL (3.4-5.0); ALBUMIN/GLOBULIN RATIO 0.7 (1.1-1.5); ALKALINE PHOSPHATASE 65 IU/L (46-116); ANION GAP 14 (8-16); ASPARTATE AMINO TRANSFERASE 14 U/L (10-37); BILIRUBIN,TOTAL 1.1 MG/DL (0.1-1.0); BLOOD UREA NITROGEN 12 MG/DL (7-18); BUN/CREATININE RATIO 12.8 (5.4-32.0); CHLORIDE 104 MMOL/L (99-107); CREATININE 0.94 MG/DL (0.60-1.10); GLUCOSE 187 MG/DL (70-104); MAGNESIUM 2.1 MG/DL (1.5-2.4); PHOSPHORUS 1.5 MG/DL (2.3-4.5); SODIUM 138 MMOL/L (135-145); TOTAL CARBON DIOXIDE 20.2 MMOL/L (24-32); TOTAL PROTEIN 4.8 G/DL (6.4-8.2); eGFR 80 ML/MIN
[2021-02-13 03:56] LABS: POTASSIUM 1.8 MMOL/L (3.5-5.1)
[2021-02-13] MEDS: potassium Cl 20 mEq SR tablet PO PRN ×3 (04:05→16:09)
[2021-02-13] MEDS ORDERED: sodium phosphate inj. 15 MMOL in dextrose 5%-water 250 ML IV ONE (04:25)
[2021-02-13] MEDS: potassium Cl 20 mEq/100mL bag IV SCH ×2 (04:30→05:43)
[2021-02-13] MEDS ORDERED: potassium phosphate inj 15 MMOL in NS 250ml IV soln 250 ML IV ONE (04:35)
[2021-02-13] MEDS: acetaminophen 325mg tablet PO PRN ×2 (04:49→15:53)
--- NOTE | 2021-02-13 05:00 | NUR ---
critical lab reported to [employer] New orders was given.
--- NOTE | 2021-02-13 06:41 | NUR ---
Two RN Skin Assessment has been completed at 2210 with kiln charger,all skin assessed.Skin Intact. Optifoam place on sacrum prophylactically. ZACARIAS Vick
[2021-02-13] MEDS: famotidine 20mg tablet PO SCH ×2 (07:47→20:09)
[2021-02-13] MEDS: Neutra Phos packet PO SCH ×3 (07:48→20:09)
[2021-02-13] MEDS: K, MAG and/or Phos replacement - Verify level? MC SCH (08:00)
[2021-02-13 10:42] LABS: ALBUMIN 1.9 G/DL (3.4-5.0); ANION GAP 12 (8-16); BLOOD UREA NITROGEN 10 MG/DL (7-18); BUN/CREATININE RATIO 10.5 (5.4-32.0); CALCIUM 6.7 MG/DL (8.5-10.1); CHLORIDE 108 MMOL/L (99-107); CREATININE 0.95 MG/DL (0.60-1.10); GLUCOSE 169 MG/DL (70-104); PHOSPHORUS 1.6 MG/DL (2.3-4.5); SODIUM 140 MMOL/L (135-145); TOTAL CARBON DIOXIDE 19.6 MMOL/L (24-32); eGFR 79 ML/MIN
[2021-02-13 10:45] LABS: POTASSIUM 2.5 MMOL/L (3.5-5.1)
[2021-02-13] MEDS ORDERED: potassium Cl 20 mEq/100mL bag IV ONE ×4 (10:50→18:20)
[2021-02-13] MEDS ORDERED: potassium Cl 20mEq/100mL bag 100 ML IV ONE ×2 (11:00→16:00)
[2021-02-13] MEDS: LOPERAMIDE 2 mg/15 ml oral solution UD PO PRN (13:07)
[2021-02-13] MEDS: heparin, porcine 5000 units/ml vial SQ SCH (13:07)
[2021-02-13] MEDS: lactose-reduced food (Ensure Enlive) - 237ml bottle PO SCH ×2 (13:16→18:00)
[2021-02-13] MEDS: ringers solution, lacted 1,000 ML IV SCH (13:24)
--- NOTE | 2021-02-13 14:19 | NUR ---
Initial: Pt admitted w/ chief complaint of weakness, unintentional wt loss, and decreased appetite w/ new findings of possible peritoneal mets and lung mets. Discussed w/ Pt and his at bedside, pt reports of gradual decline over the last 6 months and having very little appetite and experiencing wt loss because of this. Pt states his usual intake for the day is 1-2 Premier protein shakes, 4 ounces of applesauce, and 1 cup of juice. Pt states his usual wt prior to decline was about 170lb, current wt is 130lb though not scaled. Pt observed at bedside w/ moderate wasting of temporalis, quadricep, patellar, and calf regions, no edema noted. At this time pt meets minimum criteria for severe malnutrition, MD notified. Pt currently on Regular diet though only able to eat a couple bites of each meal. ONS currently verified in EMR. Discussed food preferences w/ pt and preferences d/w dietary. [facility] 02/12. Will continue to monitor and make recommendations as appropriate. Recs: 1. Continue Regular diet as tolerated 2. Ensure Enlive TID 3. Applesauce WB, Sherbit WL, Bangladeshi Ice BIDLD, Magic cup WS per pt preference 4. Bowel care per rx 5. Scaled wt this admit, weekly wt thereafter Addendum: 02/13/21 at [address] Amended: Links added.
[2021-02-13] MEDS: ondansetron/PF 4mg/2ml inj IV PRN (15:48)
[2021-02-13] MEDS: albuterol 2.5 MG/3 ML nebule NEB PRN (17:28)
--- NOTE | 2021-02-13 18:33 | NUR ---
Problems reprioritized. Patient report given, questions answered & plan of care reviewed with ZACARIAS Mitchell.
[2021-02-14] VITALS (23 sets, daily range): BP systolic 83–117; BP diastolic 45–78
[2021-02-14] MEDS: heparin, porcine 5000 units/ml vial SQ SCH ×4 (00:38→23:00)
[2021-02-14] MEDS: piperacillin/tazo 3.375gm/50ml 50 ML IV SCH ×4 (00:38→23:00)
[2021-02-14] MEDS: ringers solution, lacted 1,000 ML IV SCH ×4 (02:25→21:25)
[2021-02-14] MEDS: NORepinephrine 8mg/ 250ml NS 250 ML IV SCH ×2 (05:19→13:03)
--- NOTE | 2021-02-14 06:44 | NUR ---
Problems reprioritized. Patient report given, questions answered & plan of care reviewed with Marlin ADAMES.
[2021-02-14 07:24] LABS: BASOPHILS # (AUTO) 0.1 X10'3 (0-0.2); BASOPHILS % (AUTO) 1.2 % (0-1); EOSINOPHILS # (AUTO) 0.5 X10'3 (0-0.9); EOSINOPHILS % (AUTO) 3.9 % (0-6); HEMATOCRIT 35.7 % (42.0-52.0); HEMOGLOBIN 12.4 g/dl (14.0-17.9); LYMPHOCYTES # (AUTO) 1.4 X10'3 (1.1-4.8); LYMPHOCYTES % (AUTO) 11.5 % (21-51); MEAN CORPUSCULAR HEMOGLOBIN 35.7 PG (27.0-31.0); MEAN CORPUSCULAR HGB CONC 34.7 g/dL (33.0-36.5); MEAN CORPUSCULAR VOLUME 102.9 FL (78-98); MEAN PLATELET VOLUME 8.9 FL (7.4-10.4); MONOCYTES # (AUTO) 1.4 X10'3 (0-0.9); MONOCYTES % (AUTO) 11.6 % (2-12); NEUTROPHILS # (AUTO) 8.6 X10'3 (1.8-7.7); NEUTROPHILS % (AUTO) 71.8 % (42-75); PLATELET COUNT 192 X10'3 (140-440); RED BLOOD COUNT 3.47 X10'6 (4.70-6.10); RED CELL DISTRIBUTION WIDTH 15.1 % (11.5-14.5); WHITE BLOOD COUNT 12.1 X10'3 (4.5-11.0)
[2021-02-14] MEDS: LOPERAMIDE 2 mg/15 ml oral solution UD PO PRN ×2 (07:31→18:45)
[2021-02-14] MEDS: famotidine 20mg tablet PO SCH ×2 (07:32→20:23)
[2021-02-14] MEDS: Neutra Phos packet PO SCH ×3 (07:37→20:24)
[2021-02-14 07:44] LABS: ALANINE AMINOTRANSFERASE 11 U/L (12-78); ALBUMIN 1.8 G/DL (3.4-5.0); ALBUMIN/GLOBULIN RATIO 0.6 (1.1-1.5); ALKALINE PHOSPHATASE 74 IU/L (46-116); ANION GAP 11 (8-16); ASPARTATE AMINO TRANSFERASE 18 U/L (10-37); BILIRUBIN,TOTAL 0.9 MG/DL (0.1-1.0); BLOOD UREA NITROGEN 5 MG/DL (7-18); BUN/CREATININE RATIO 7.7 (5.4-32.0); CALCIUM 7.6 MG/DL (8.5-10.1); CHLORIDE 113 MMOL/L (99-107); CREATININE 0.65 MG/DL (0.60-1.10); GLUCOSE 127 MG/DL (70-104); MAGNESIUM 1.7 MG/DL (1.5-2.4); SODIUM 145 MMOL/L (135-145); TOTAL CARBON DIOXIDE 20.6 MMOL/L (24-32); TOTAL PROTEIN 4.8 G/DL (6.4-8.2); eGFR > 90 ML/MIN
[2021-02-14] MEDS: K, MAG and/or Phos replacement - Verify level? MC SCH (08:00)
[2021-02-14] MEDS: potassium Cl 20 mEq SR tablet PO PRN ×3 (08:01→16:12)
[2021-02-14] MEDS: ondansetron/PF 4mg/2ml inj IV PRN (08:01)
[2021-02-14] MEDS: lactose-reduced food (Ensure Enlive) - 237ml bottle PO SCH ×3 (08:02→17:41)
[2021-02-14] MEDS ORDERED: potassium Cl 40MEQ/250ML bag 270 ML IV PRN (10:05)
[2021-02-14] MEDS ORDERED: magnesium 2GM in 50ml NS 50 ML IV PRN (10:05)
[2021-02-14] MEDS ORDERED: magnesium 4gm in 100ml NS 100 ML IV PRN (10:05)
[2021-02-14] MEDS ORDERED: potassium Cl 20 mEq SR tablet PO PRN ×2 (10:05)
--- NOTE | 2021-02-14 11:29 | NUR ---
F/u 02/14: Pt states he will not drink the ONS provided and does not want them, d/w RN and dietary. Additional food preferences obtained from pt, d/w dietary. Addendum: 02/14/21 at [address] Amended: Links added.
[2021-02-14] MEDS: albuterol 2.5 MG/3 ML nebule NEB PRN ×2 (16:58→20:53)
[2021-02-14] MEDS ORDERED: Potassium Cl 40 MEQ in normal saline IV soln 270 ML IV ONE (17:10)
--- NOTE | 2021-02-14 18:15 | NUR ---
Problems reprioritized. Patient report given, questions answered & plan of care reviewed with Marlin.
--- NOTE | 2021-02-14 18:30 | NUR ---
Received pt in bed AAOX4 family member presents. IV medication infusing well at 0.2mcg/kg/hr and hydration in progress. Pt denied any discomfort. safety measure in place ; fall precaution in progress. Addendum: 02/15/21 at 0214 by Marlin Santos RN IV medication infusing at 0.02mcg/kg/m
[2021-02-15] VITALS (23 sets, daily range): BP systolic 82–127; BP diastolic 45–86
[2021-02-15] MEDS: albuterol 2.5 MG/3 ML nebule NEB PRN ×3 (01:42→17:26)
--- NOTE | 2021-02-15 02:15 | NUR ---
Pt resting , is in stable condition. IV medication infusing now at 0.01mcg/kg/m. No complaints voiced.
[2021-02-15 03:13] LABS: BASOPHILS # (AUTO) 0.1 X10'3 (0-0.2); BASOPHILS % (AUTO) 1.2 % (0-1); EOSINOPHILS # (AUTO) 0.3 X10'3 (0-0.9); EOSINOPHILS % (AUTO) 3.6 % (0-6); HEMATOCRIT 33.8 % (42.0-52.0); HEMOGLOBIN 11.6 g/dl (14.0-17.9); LYMPHOCYTES # (AUTO) 1.8 X10'3 (1.1-4.8); LYMPHOCYTES % (AUTO) 22.2 % (21-51); MEAN CORPUSCULAR HEMOGLOBIN 35.8 PG (27.0-31.0); MEAN CORPUSCULAR HGB CONC 34.2 g/dL (33.0-36.5); MEAN CORPUSCULAR VOLUME 104.6 FL (78-98); MEAN PLATELET VOLUME 8.8 FL (7.4-10.4); MONOCYTES # (AUTO) 0.8 X10'3 (0-0.9); MONOCYTES % (AUTO) 10.2 % (2-12); NEUTROPHILS # (AUTO) 5.1 X10'3 (1.8-7.7); NEUTROPHILS % (AUTO) 62.8 % (42-75); PLATELET COUNT 188 X10'3 (140-440); RED BLOOD COUNT 3.23 X10'6 (4.70-6.10); RED CELL DISTRIBUTION WIDTH 15.6 % (11.5-14.5); WHITE BLOOD COUNT 8.2 X10'3 (4.5-11.0)
[2021-02-15] MEDS: LOPERAMIDE 2 mg/15 ml oral solution UD PO PRN ×2 (03:24→11:28)
[2021-02-15 03:33] LABS: ALANINE AMINOTRANSFERASE 10 U/L (12-78); ALBUMIN 1.7 G/DL (3.4-5.0); ALBUMIN/GLOBULIN RATIO 0.6 (1.1-1.5); ALKALINE PHOSPHATASE 74 IU/L (46-116); ANION GAP 9 (8-16); ASPARTATE AMINO TRANSFERASE 16 U/L (10-37); BILIRUBIN,TOTAL 0.6 MG/DL (0.1-1.0); BLOOD UREA NITROGEN 3 MG/DL (7-18); BUN/CREATININE RATIO 4.2 (5.4-32.0); CALCIUM 7.5 MG/DL (8.5-10.1); CHLORIDE 117 MMOL/L (99-107); CREATININE 0.72 MG/DL (0.60-1.10); GLUCOSE 134 MG/DL (70-104); MAGNESIUM 1.5 MG/DL (1.5-2.4); PHOSPHORUS 1.8 MG/DL (2.3-4.5); POTASSIUM 4.6 MMOL/L (3.5-5.1); SODIUM 146 MMOL/L (135-145); TOTAL CARBON DIOXIDE 19.9 MMOL/L (24-32); TOTAL PROTEIN 4.5 G/DL (6.4-8.2); eGFR > 90 ML/MIN
--- NOTE | 2021-02-15 06:10 | NUR ---
Patient in room ICU 2043. I have received report from Caroline ADAMES and had the opportunity to ask questions and assume patient care.
[2021-02-15] MEDS: piperacillin/tazo 3.375gm/50ml 50 ML IV SCH ×2 (07:34→16:30)
[2021-02-15] MEDS: heparin, porcine 5000 units/ml vial SQ SCH ×2 (07:34→16:31)
[2021-02-15] MEDS: famotidine 20mg tablet PO SCH ×2 (07:35→19:58)
[2021-02-15] MEDS: Neutra Phos packet PO SCH ×3 (07:35→19:58)
[2021-02-15] MEDS: acetaminophen 325mg tablet PO PRN (07:35)
[2021-02-15] MEDS: ringers solution, lacted 1,000 ML IV SCH ×2 (07:35→18:05)
[2021-02-15] MEDS: K and/or MAG REPLACEMENT MC SCH (07:36)
[2021-02-15] MEDS: K, MAG and/or Phos replacement - Verify level? MC SCH (07:36)
[2021-02-15] MEDS: lactose-reduced food (Ensure Enlive) - 237ml bottle PO SCH ×3 (08:12→19:00)
--- NOTE | 2021-02-15 09:09 | NUR ---
paged and called RT: rm 2043, Hipolito Olmstead would like a breathing treatment. He is SOB. Thank you ICU 2043
[2021-02-15] MEDS: NORepinephrine 8mg/ 250ml NS 250 ML IV SCH (11:31)
[2021-02-15] MEDS: midodrine tablet 2.5 MG TABLET PO SCH ×2 (12:23→16:30)
--- NOTE | 2021-02-15 18:25 | NUR ---
Problems reprioritized. Patient report given, questions answered & plan of care reviewed with Billie ADAMES.
[2021-02-16] VITALS (22 sets, daily range): BP systolic 82–132; BP diastolic 42–80
[2021-02-16] MEDS: piperacillin/tazo 3.375gm/50ml 50 ML IV SCH ×2 (00:09→07:56)
[2021-02-16] MEDS: heparin, porcine 5000 units/ml vial SQ SCH ×3 (00:09→15:30)
[2021-02-16] MEDS: albuterol 2.5 MG/3 ML nebule NEB PRN ×4 (02:58→21:16)
[2021-02-16 03:08] LABS: BASOPHILS # (AUTO) 0.1 X10'3 (0-0.2); BASOPHILS % (AUTO) 1.4 % (0-1); EOSINOPHILS # (AUTO) 0.3 X10'3 (0-0.9); EOSINOPHILS % (AUTO) 3.2 % (0-6); HEMATOCRIT 35.2 % (42.0-52.0); LYMPHOCYTES # (AUTO) 1.7 X10'3 (1.1-4.8); MEAN CORPUSCULAR HEMOGLOBIN 35.9 PG (27.0-31.0); MEAN CORPUSCULAR VOLUME 105.4 FL (78-98); MEAN PLATELET VOLUME 8.7 FL (7.4-10.4); MONOCYTES % (AUTO) 10.2 % (2-12); NEUTROPHILS # (AUTO) 6.4 X10'3 (1.8-7.7); NEUTROPHILS % (AUTO) 67.2 % (42-75); PLATELET COUNT 201 X10'3 (140-440); RED BLOOD COUNT 3.34 X10'6 (4.70-6.10); RED CELL DISTRIBUTION WIDTH 15.7 % (11.5-14.5); WHITE BLOOD COUNT 9.6 X10'3 (4.5-11.0)
[2021-02-16 03:25] LABS: ALANINE AMINOTRANSFERASE 10 U/L (12-78); ALBUMIN 1.7 G/DL (3.4-5.0); ALBUMIN/GLOBULIN RATIO 0.6 (1.1-1.5); ALKALINE PHOSPHATASE 73 IU/L (46-116); ANION GAP 9 (8-16); ASPARTATE AMINO TRANSFERASE 18 U/L (10-37); BILIRUBIN,TOTAL 0.5 MG/DL (0.1-1.0); BLOOD UREA NITROGEN 2 MG/DL (7-18); BUN/CREATININE RATIO 3.2 (5.4-32.0); CALCIUM 7.8 MG/DL (8.5-10.1); CHLORIDE 115 MMOL/L (99-107); CREATININE 0.63 MG/DL (0.60-1.10); GLUCOSE 94 MG/DL (70-104); MAGNESIUM 1.3 MG/DL (1.5-2.4); PHOSPHORUS 2.5 MG/DL (2.3-4.5); SODIUM 146 MMOL/L (135-145); TOTAL CARBON DIOXIDE 22.4 MMOL/L (24-32); TOTAL PROTEIN 4.6 G/DL (6.4-8.2); eGFR > 90 ML/MIN
[2021-02-16] MEDS: ringers solution, lacted 1,000 ML IV SCH (04:02)
--- NOTE | 2021-02-16 06:24 | NUR ---
REPORT GIVEN TO MARCAI/ZACARIAS
--- NOTE | 2021-02-16 06:34 | NUR ---
Patient in room ICU 2043. I have received report from Billie ADAMES and had the opportunity to ask questions and assume patient care.
[2021-02-16] MEDS: Neutra Phos packet PO SCH (07:56)
[2021-02-16] MEDS: famotidine 20mg tablet PO SCH ×2 (07:56→19:55)
[2021-02-16] MEDS: midodrine tablet 2.5 MG TABLET PO SCH ×3 (07:59→15:29)
[2021-02-16] MEDS: lactose-reduced food (Ensure Enlive) - 237ml bottle PO SCH ×2 (07:59→13:09)
[2021-02-16] MEDS: K, MAG and/or Phos replacement - Verify level? MC SCH (08:00)
[2021-02-16] MEDS: K and/or MAG REPLACEMENT MC SCH (08:00)
[2021-02-16] MEDS: NORepinephrine 8mg/ 250ml NS 250 ML IV SCH ×2 (10:11→19:56)
[2021-02-16] MEDS ORDERED: magnesium Cl slow-release 64mg tablet PO PRN (13:00)
--- NOTE | 2021-02-16 13:11 | NUR ---
Informed Dr. Cordero of pt having 8 beat run of vtach followed by 6 beat run of vtach and trigeminy and bigeminy, multiple PVCs. ordered to recheck K and Mg.
[2021-02-16 14:04] LABS: MAGNESIUM 1.8 MG/DL (1.5-2.4); POTASSIUM 4.3 MMOL/L (3.5-5.1)
[2021-02-16] MEDS: budesonide 0.5mg/2ml UD nebule IH SCH ×2 (14:54→21:16)
--- NOTE | 2021-02-16 15:53 | NUR ---
Reassessment: Pt continues to eat poorly on regular diet, documented with mostly 25% PO intake not meeting estimated nutrient needs. Pt and SO seen at bedside and provided with alternative menu to provide additional food options. Additional food preferences were obtained and d/w dietary, see below. SO reports pt just has no appetite and she has been trying to offer his favorite foods but they don't sound good to him. 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 RD encouraged PO intake and provided pt and SO with RD contact information and encouraged to reach out for any further food preferences. D/w RN additional option is an appetite stimulant IF MD agreeable. ONS has been discontinued per pt request as pt reports being burned out on ONS so will not drink them. [facility]BM 02/16. Will continue to follow closely. Recommendations: 1. Continue regular diet 2. Encourage PO intake and honor food preferences: orange slices WB; applesauce BIDBD; sherbet and fruit cup WL; soup, rolls, Wallisian ice BIDLD; Magic cup and strawberry milkshake WS; No ONS per pt request 3. Consider appetite stimulant with MD approval 4. Consider EN to assist with meeting estimated nutrient needs. Pt and SO request PEG and no NG tube 5. Bowel care per rx 6. Weekly scaled weights Addendum: 02/16/21 at 1555 by [address] RD Amended: Links added.
--- NOTE | 2021-02-16 18:15 | NUR ---
Problems reprioritized. Patient report given, questions answered & plan of care reviewed with Billie ADAMES.
[2021-02-16] MEDS: LOPERAMIDE 2 mg/15 ml oral solution UD PO PRN (20:38)
[2021-02-17] VITALS (24 sets, daily range): BP systolic 88–127; BP diastolic 42–76
[2021-02-17] MEDS: heparin, porcine 5000 units/ml vial SQ SCH ×4 (00:26→23:36)
[2021-02-17 03:00] LABS: ALANINE AMINOTRANSFERASE 11 U/L (12-78); ALBUMIN 1.7 G/DL (3.4-5.0); ALBUMIN/GLOBULIN RATIO 0.6 (1.1-1.5); ALKALINE PHOSPHATASE 68 IU/L (46-116); ANION GAP 10 (8-16); ASPARTATE AMINO TRANSFERASE 17 U/L (10-37); BILIRUBIN,TOTAL 0.4 MG/DL (0.1-1.0); BLOOD UREA NITROGEN 3 MG/DL (7-18); BUN/CREATININE RATIO 4.3 (5.4-32.0); CHLORIDE 112 MMOL/L (99-107); CREATININE 0.69 MG/DL (0.60-1.10); GLUCOSE 109 MG/DL (70-104); MAGNESIUM 1.6 MG/DL (1.5-2.4); PHOSPHORUS 2.8 MG/DL (2.3-4.5); POTASSIUM 3.8 MMOL/L (3.5-5.1); SODIUM 145 MMOL/L (135-145); TOTAL CARBON DIOXIDE 23.5 MMOL/L (24-32); TOTAL PROTEIN 4.6 G/DL (6.4-8.2); eGFR > 90 ML/MIN
[2021-02-17 03:29] LABS: BASOPHILS # (AUTO) 0.2 X10'3 (0-0.2); BASOPHILS % (AUTO) 1.4 % (0-1); EOSINOPHILS # (AUTO) 0.3 X10'3 (0-0.9); HEMATOCRIT 35.3 % (42.0-52.0); HEMOGLOBIN 12.1 g/dl (14.0-17.9); LYMPHOCYTES # (AUTO) 1.6 X10'3 (1.1-4.8); LYMPHOCYTES % (AUTO) 15.1 % (21-51); MEAN CORPUSCULAR HEMOGLOBIN 36.1 PG (27.0-31.0); MEAN CORPUSCULAR HGB CONC 34.3 g/dL (33.0-36.5); MEAN CORPUSCULAR VOLUME 105.5 FL (78-98); MONOCYTES # (AUTO) 1.2 X10'3 (0-0.9); MONOCYTES % (AUTO) 11.5 % (2-12); NEUTROPHILS # (AUTO) 7.4 X10'3 (1.8-7.7); PLATELET COUNT 199 X10'3 (140-440); RED BLOOD COUNT 3.35 X10'6 (4.70-6.10); RED CELL DISTRIBUTION WIDTH 15.4 % (11.5-14.5); WHITE BLOOD COUNT 10.7 X10'3 (4.5-11.0)
--- NOTE | 2021-02-17 06:15 | NUR ---
Report given to MARCIA/ZACARIAS
--- NOTE | 2021-02-17 06:30 | NUR ---
Patient in room ICU 2043. I have received report from Billie ADAMES and had the opportunity to ask questions and assume patient care.
[2021-02-17] MEDS: midodrine tablet 2.5 MG TABLET PO SCH ×3 (07:47→15:20)
[2021-02-17] MEDS: famotidine 20mg tablet PO SCH ×2 (07:47→18:56)
[2021-02-17] MEDS: K and/or MAG REPLACEMENT MC SCH (07:54)
[2021-02-17] MEDS: K, MAG and/or Phos replacement - Verify level? MC SCH (07:55)
[2021-02-17] MEDS ORDERED: PERFLUTREN PROTEIN-A MICROSPHR (Optison) 0.22 MG/ML 3ML VIAL IV ONE (08:00)
[2021-02-17] MEDS: albuterol 2.5 MG/3 ML nebule NEB PRN ×2 (08:50→19:43)
[2021-02-17] MEDS: budesonide 0.5mg/2ml UD nebule IH SCH ×2 (08:50→19:43)
[2021-02-17] MEDS ORDERED: potassium Cl 20mEq/100mL bag 100 ML IV PRN (09:45)
[2021-02-17] MEDS ORDERED: potassium Cl 40MEQ/250ML bag 250 ML IV PRN (09:45)
[2021-02-17] MEDS: potassium Cl 20 mEq SR tablet PO PRN (09:52)
[2021-02-17] MEDS: LOPERAMIDE 2 mg/15 ml oral solution UD PO PRN ×2 (09:56→16:50)
--- NOTE | 2021-02-17 10:00 | NUR ---
Dr. Cordero informed that pt had 11beat run of SVT. ordered to replace dose of Mg and K per protocol to keep K above 4.5.
[2021-02-17 13:20] LABS: CLARITY,URINE CLEAR (Clear); COLOR,URINE YELLOW (Yellow); GLUCOSE, URINE NEGATIVE (Neg); KETONES,URINE NEGATIVE (Neg); NITRITES, URINE NEGATIVE (Neg); OCCULT BLOOD,URINE NEGATIVE (Neg); PH,URINE 6.5 (4.8-8.0); PROTEIN,URINE NEGATIVE (Neg); UA COLLECTION TYPE NON-SPECIFIED; UROBILINOGEN,URINE 0.2 E.U/dL (0.2-1.0)
[2021-02-17 13:21] LABS: LEUKOCYTE ESTERASE ,URINE NEGATIVE (Neg)
--- NOTE | 2021-02-17 15:52 | NUR ---
Informed Dr. Cordero of lactic level of 2.7. No new orders at this time.
--- NOTE | 2021-02-17 16:25 | NUR ---
F/u: Pt and SO seen at bedside for additional food preferences that have been d/w dietary. Pt denies difficulty chewing/swallowing or desire for texture modification to assist with meals. Patient's SO reports concern for pt getting dinner late d/t meal trays arriving at shift change resulting in food temperature changes. RD validated concerns and offered for pt to receive early dinner trays however pt declined at this time. RD contact information provided and pt/SO encouraged to reach out for additional food preferences, questions, or concerns. Will continue to follow closely. Addendum: 02/17/21 at 1628 by [address] Del[address]ruz RD Amended: Links added.
[2021-02-17] MEDS: acetaminophen 325mg tablet PO PRN (18:21)
--- NOTE | 2021-02-17 18:27 | NUR ---
Problems reprioritized. Patient report given, questions answered & plan of care reviewed with Billie ADAMES.
[2021-02-18] VITALS (24 sets, daily range): BP systolic 85–125; BP diastolic 45–74
[2021-02-18 02:55] LABS: BASOPHILS # (AUTO) 0.1 X10'3 (0-0.2); BASOPHILS % (AUTO) 0.9 % (0-1); EOSINOPHILS # (AUTO) 0.4 X10'3 (0-0.9); EOSINOPHILS % (AUTO) 4.1 % (0-6); HEMATOCRIT 35.9 % (42.0-52.0); HEMOGLOBIN 12.1 g/dl (14.0-17.9); LYMPHOCYTES # (AUTO) 1.6 X10'3 (1.1-4.8); LYMPHOCYTES % (AUTO) 16.9 % (21-51); MEAN CORPUSCULAR HEMOGLOBIN 35.9 PG (27.0-31.0); MEAN CORPUSCULAR HGB CONC 33.7 g/dL (33.0-36.5); MEAN CORPUSCULAR VOLUME 106.5 FL (78-98); MEAN PLATELET VOLUME 9.1 FL (7.4-10.4); MONOCYTES # (AUTO) 1.4 X10'3 (0-0.9); MONOCYTES % (AUTO) 14.2 % (2-12); NEUTROPHILS # (AUTO) 6.1 X10'3 (1.8-7.7); NEUTROPHILS % (AUTO) 63.9 % (42-75); PLATELET COUNT 229 X10'3 (140-440); RED BLOOD COUNT 3.37 X10'6 (4.70-6.10); RED CELL DISTRIBUTION WIDTH 15.5 % (11.5-14.5); WHITE BLOOD COUNT 9.6 X10'3 (4.5-11.0)
[2021-02-18 03:00] LABS: ALANINE AMINOTRANSFERASE 12 U/L (12-78); ALBUMIN 1.7 G/DL (3.4-5.0); ALBUMIN/GLOBULIN RATIO 0.6 (1.1-1.5); ALKALINE PHOSPHATASE 67 IU/L (46-116); ANION GAP 10 (8-16); ASPARTATE AMINO TRANSFERASE 18 U/L (10-37); BILIRUBIN,TOTAL 0.4 MG/DL (0.1-1.0); BLOOD UREA NITROGEN 2 MG/DL (7-18); BUN/CREATININE RATIO 3.4 (5.4-32.0); CALCIUM 8.2 MG/DL (8.5-10.1); CHLORIDE 111 MMOL/L (99-107); CREATININE 0.59 MG/DL (0.60-1.10); GLUCOSE 104 MG/DL (70-104); MAGNESIUM 1.6 MG/DL (1.5-2.4); PHOSPHORUS 3.3 MG/DL (2.3-4.5); POTASSIUM 4.3 MMOL/L (3.5-5.1); SODIUM 143 MMOL/L (135-145); TOTAL CARBON DIOXIDE 22.2 MMOL/L (24-32); TOTAL PROTEIN 4.6 G/DL (6.4-8.2); eGFR > 90 ML/MIN
--- NOTE | 2021-02-18 03:54 | NUR ---
I need Potassium 40mEq/250ML. THANKS Addendum: 02/18/21 at 0356 by Billie Santos RN Potassium 4.3 will be replaced with PO tablet
--- NOTE | 2021-02-18 06:01 | NUR ---
Report given to Fadi/RN
[2021-02-18] MEDS: NORepinephrine 8mg/ 250ml NS 250 ML IV SCH (07:19)
[2021-02-18] MEDS: K, MAG and/or Phos replacement - Verify level? MC SCH (08:00)
[2021-02-18] MEDS ORDERED: midodrine tablet 2.5 MG TABLET PO SCH (08:00)
[2021-02-18] MEDS: heparin, porcine 5000 units/ml vial SQ SCH ×2 (08:13→15:59)
[2021-02-18] MEDS: famotidine 20mg tablet PO SCH ×2 (08:13→19:46)
[2021-02-18] MEDS ORDERED: midodrine 5mg tablet PO SCH ×2 (08:33→08:35)
[2021-02-18] MEDS: morphine 4 MG/ML inj SYRINge IV PRN ×2 (09:19→17:06)
[2021-02-18] MEDS: albuterol 2.5 MG/3 ML nebule NEB PRN ×2 (09:31→18:56)
[2021-02-18] MEDS: budesonide 0.5mg/2ml UD nebule IH SCH ×2 (09:31→18:56)
[2021-02-18] MEDS: midodrine 5mg tablet PO SCH ×2 (12:48→15:59)
--- NOTE | 2021-02-18 14:47 | NUR ---
right femoral central line pulled 2cm. Discontinued and held manual pressure 5 mins. 20 g PIV placed to left AC
--- NOTE | 2021-02-18 18:14 | NUR ---
Problems reprioritized. Patient report given, questions answered & plan of care reviewed with ZACARIAS Wise.
[2021-02-19] VITALS (23 sets, daily range): BP systolic 89–127; BP diastolic 52–75
[2021-02-19] MEDS: heparin, porcine 5000 units/ml vial SQ SCH ×3 (00:07→15:39)
[2021-02-19] MEDS: morphine 4 MG/ML inj SYRINge IV PRN ×2 (02:22→21:04)
[2021-02-19] MEDS: NORepinephrine 8mg/ 250ml NS 250 ML IV SCH (05:53)
[2021-02-19 06:03] LABS: BASOPHILS # (AUTO) 0.1 X10'3 (0-0.2); EOSINOPHILS # (AUTO) 0.3 X10'3 (0-0.9); EOSINOPHILS % (AUTO) 3.5 % (0-6); HEMATOCRIT 36.9 % (42.0-52.0); HEMOGLOBIN 12.5 g/dl (14.0-17.9); LYMPHOCYTES # (AUTO) 1.2 X10'3 (1.1-4.8); LYMPHOCYTES % (AUTO) 16.4 % (21-51); MEAN CORPUSCULAR HEMOGLOBIN 35.8 PG (27.0-31.0); MEAN CORPUSCULAR HGB CONC 33.8 g/dL (33.0-36.5); MEAN CORPUSCULAR VOLUME 105.9 FL (78-98); MEAN PLATELET VOLUME 9.3 FL (7.4-10.4); NEUTROPHILS % (AUTO) 66.1 % (42-75); PLATELET COUNT 223 X10'3 (140-440); RED BLOOD COUNT 3.48 X10'6 (4.70-6.10); RED CELL DISTRIBUTION WIDTH 15.6 % (11.5-14.5); WHITE BLOOD COUNT 7.6 X10'3 (4.5-11.0)
--- NOTE | 2021-02-19 06:06 | NUR ---
Patient had about 15ml bleeds from right groin area, where PICC line dc yesterday. pressure dressing applied, bleeding controlled . no acute bleed noted at this time. dressing dry and intact.
[2021-02-19 06:16] LABS: ALANINE AMINOTRANSFERASE 13 U/L (12-78); ALBUMIN 1.9 G/DL (3.4-5.0); ALBUMIN/GLOBULIN RATIO 0.6 (1.1-1.5); ALKALINE PHOSPHATASE 77 IU/L (46-116); ANION GAP 8 (8-16); ASPARTATE AMINO TRANSFERASE 14 U/L (10-37); BILIRUBIN,TOTAL 0.5 MG/DL (0.1-1.0); BLOOD UREA NITROGEN 3 MG/DL (7-18); BUN/CREATININE RATIO 4.5 (5.4-32.0); CALCIUM 8.6 MG/DL (8.5-10.1); CHLORIDE 108 MMOL/L (99-107); CREATININE 0.67 MG/DL (0.60-1.10); GLUCOSE 82 MG/DL (70-104); MAGNESIUM 1.7 MG/DL (1.5-2.4); PHOSPHORUS 4.2 MG/DL (2.3-4.5); POTASSIUM 4.2 MMOL/L (3.5-5.1); SODIUM 143 MMOL/L (135-145); TOTAL CARBON DIOXIDE 26.6 MMOL/L (24-32); TOTAL PROTEIN 5.3 G/DL (6.4-8.2); eGFR > 90 ML/MIN
--- NOTE | 2021-02-19 06:17 | NUR ---
Report given to Miroslava/ZACARIAS
--- NOTE | 2021-02-19 06:52 | NUR ---
Patient in room ICU 2043. I have received report from Billie ADAMES and had the opportunity to ask questions and assume patient care.
[2021-02-19] MEDS: midodrine 5mg tablet PO SCH ×3 (07:51→15:39)
[2021-02-19] MEDS: famotidine 20mg tablet PO SCH ×2 (07:51→20:03)
[2021-02-19] MEDS: K, MAG and/or Phos replacement - Verify level? MC SCH (08:00)
[2021-02-19] MEDS: potassium Cl 20 mEq SR tablet PO PRN (08:09)
[2021-02-19] MEDS: albuterol 2.5 MG/3 ML nebule NEB PRN ×2 (08:46→20:39)
[2021-02-19] MEDS: budesonide 0.5mg/2ml UD nebule IH SCH ×2 (08:47→20:39)
[2021-02-19] MEDS: morphine 2 MG/ML inj. syringe IV PRN ×2 (09:37→15:39)
[2021-02-19] MEDS ORDERED: megestrol acetate 400mg/10ml UD oral suspension PO ONE (10:45)
[2021-02-19] MEDS: megestrol acetate 400mg/10ml UD oral suspension PO SCH (11:04)
--- NOTE | 2021-02-19 11:45 | NUR ---
F/u 02/19: Pt continues w/ poor PO intake avg 25% of meals on Regular diet despite multiple nutrition interventions on meal trays. 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 MD agreeable to PEG and also to start megace. See TF recs below for when pt receives PEG. LBM 02/17. Will continue to monitor and adjust needs as medically indicated. Recommendations: 1. Continue regular diet 2. Encourage PO intake and honor food preferences: orange slices WB; applesauce BIDBD; sherbet and fruit cup WL; soup, rolls, Indonesian ice BIDLD; Magic cup and strawberry milkshake WS; No ONS per pt request 3. Consider appetite stimulant with MD approval 4. IF TF, Continuous TF using Jevity 1.2 at 75ml/hr goal providing 1800ml volume, 2160kcals, 99g protein, 1458ml free water 5. IF TF, Additional water flush 150ml Q4H 6. IF TF, PALB QM/Th; daily wts 7. IF to transition to bolus feeds during admit s/p PEG: Bolus feed QID using Jevity 1.2 with goal rate of 450ml/bolus. Start at 85ml bolus and advance 50ml/bolus as tolerated to goal. Feed at 0800, 1200, 1600, 2000. 8. IF bolus TF during admit, additional 50ml water flush before and after each bolus feed 9. Bowel care per rx Addendum: 02/19/21 at [address] Amended: Links added.
--- NOTE | 2021-02-19 12:23 | NUR ---
Pt refusing NG tube that is ordered and only wants PEG tube placed.
--- NOTE | 2021-02-19 16:47 | NUR ---
Pt stated he would like NG tube placed after he eats dinner.
--- NOTE | 2021-02-19 18:00 | NUR ---
PATIENT SAID HE HIS NOT READY FOR NG TUBE TO BE INSERTED
--- NOTE | 2021-02-19 18:15 | NUR ---
Problems reprioritized. Patient report given, questions answered & plan of care reviewed with Billie ADAMES.
[2021-02-19] MEDS ORDERED: diatr meglu/diatrizoate 30ml oral sol.-(3 dose) bottle NG ONE (22:00)
--- NOTE | 2021-02-19 22:20 | NUR ---
Neftaly/RN ASSUMED PATIENTS CARE
--- NOTE | 2021-02-19 22:25 | NUR ---
Assuming patient care from Billie SERVIN
[2021-02-20] VITALS (7 sets, daily range): BP systolic 102–123; BP diastolic 26–97
[2021-02-20] MEDS: morphine 2 MG/ML inj. syringe IV PRN ×2 (00:01→07:57)
[2021-02-20] MEDS: heparin, porcine 5000 units/ml vial SQ SCH ×5 (00:01→16:13)
--- NOTE | 2021-02-20 00:40 | NUR ---
Problems reprioritized. Patient report given, questions answered & plan of care reviewed with Marlin ADAMES. Patient taken to PCU room 3026B via wheelchair by RN. All belongings, meds, and chart taken with patient.
--- NOTE | 2021-02-20 00:50 | NUR ---
Received pt via wheelchair AAOX4 , pt transferred to bed with assistance. Pt oriented to staff and room. NG to the right nare clamps. Plan of care for surgery verbalized to pt. NPO status in progress. Call light , bedside stale and urinal place within reach with instructions to call RN when need for assistance. HOB elevated for comfort.
[2021-02-20 06:27] LABS: BASOPHILS # (AUTO) 0.1 X10'3 (0-0.2); BASOPHILS % (AUTO) 0.9 % (0-1); EOSINOPHILS # (AUTO) 0.2 X10'3 (0-0.9); EOSINOPHILS % (AUTO) 3.2 % (0-6); HEMATOCRIT 36.6 % (42.0-52.0); HEMOGLOBIN 12.3 g/dl (14.0-17.9); LYMPHOCYTES # (AUTO) 1.3 X10'3 (1.1-4.8); LYMPHOCYTES % (AUTO) 17.1 % (21-51); MEAN CORPUSCULAR HEMOGLOBIN 35.6 PG (27.0-31.0); MEAN CORPUSCULAR HGB CONC 33.7 g/dL (33.0-36.5); MEAN CORPUSCULAR VOLUME 105.7 FL (78-98); MEAN PLATELET VOLUME 9.3 FL (7.4-10.4); MONOCYTES # (AUTO) 1.2 X10'3 (0-0.9); MONOCYTES % (AUTO) 15.5 % (2-12); NEUTROPHILS # (AUTO) 4.8 X10'3 (1.8-7.7); NEUTROPHILS % (AUTO) 63.3 % (42-75); PLATELET COUNT 228 X10'3 (140-440); RED BLOOD COUNT 3.46 X10'6 (4.70-6.10); RED CELL DISTRIBUTION WIDTH 15.3 % (11.5-14.5); WHITE BLOOD COUNT 7.6 X10'3 (4.5-11.0)
[2021-02-20 07:12] LABS: ALANINE AMINOTRANSFERASE 10 U/L (12-78); ALBUMIN 1.9 G/DL (3.4-5.0); ALBUMIN/GLOBULIN RATIO 0.6 (1.1-1.5); ALKALINE PHOSPHATASE 77 IU/L (46-116); ANION GAP 9 (8-16); ASPARTATE AMINO TRANSFERASE 17 U/L (10-37); BILIRUBIN,TOTAL 0.4 MG/DL (0.1-1.0); BLOOD UREA NITROGEN 4 MG/DL (7-18); BUN/CREATININE RATIO 5.5 (5.4-32.0); CALCIUM 8.6 MG/DL (8.5-10.1); CHLORIDE 109 MMOL/L (99-107); CREATININE 0.73 MG/DL (0.60-1.10); GLUCOSE 93 MG/DL (70-104); MAGNESIUM 1.7 MG/DL (1.5-2.4); PHOSPHORUS 4.5 MG/DL (2.3-4.5); POTASSIUM 4.4 MMOL/L (3.5-5.1); SODIUM 145 MMOL/L (135-145); TOTAL CARBON DIOXIDE 26.6 MMOL/L (24-32); TOTAL PROTEIN 5.2 G/DL (6.4-8.2); eGFR > 90 ML/MIN
[2021-02-20] MEDS ORDERED: glucagon, human recombinant 1mg kit ONE (07:47)
[2021-02-20] MEDS ORDERED: LIDOcaine 1%/PF 5ML 10 MG/ML VIAL ONE (07:47)
[2021-02-20] MEDS ORDERED: iohexol 300 MG/1 ML 50ml polymer ONE (07:48)
[2021-02-20] MEDS ORDERED: fentaNYL/PF 50MCG/1 ML 2ML syringe ONE (07:48)
[2021-02-20] MEDS ORDERED: midazolam 1 mg/ML 2ml injection ONE (07:48)
[2021-02-20] MEDS: budesonide 0.5mg/2ml UD nebule IH SCH ×2 (07:50→21:35)
[2021-02-20] MEDS: midodrine 5mg tablet PO SCH ×3 (07:56→16:02)
[2021-02-20] MEDS: famotidine 20mg tablet PO SCH ×2 (07:56→19:15)
[2021-02-20] MEDS ORDERED: megestrol acetate 400mg/10ml UD oral suspension PO SCH (08:00)
[2021-02-20] MEDS: K, MAG and/or Phos replacement - Verify level? MC SCH (08:00)
[2021-02-20] MEDS: megestrol acetate 400mg/10ml UD oral suspension PO SCH (08:03)
--- NOTE | 2021-02-20 08:15 | NUR ---
Upon arrival to garbage pick up man the patient for procedure it was discovered the patient had received their SQ Heparin. Procedure canceled per MD. Orders to hold blood thinners, reprep with the [facility] tonight, and will do the procedure in 11/10 AM. PCU Charge made aware.
[2021-02-20] MEDS ORDERED: megestrol acetate 400mg/10ml UD oral suspension PO ONE (10:25)
[2021-02-20] MEDS: morphine 4 MG/ML inj SYRINge IV PRN ×3 (11:58→20:02)
[2021-02-20] MEDS: albuterol 2.5 MG/3 ML nebule NEB PRN (21:35)
[2021-02-20] MEDS ORDERED: diatr meglu/diatrizoate 30ml oral sol.-(3 dose) bottle PO ONE (22:00)
[2021-02-21] VITALS (12 sets, daily range): BP systolic 95–116; BP diastolic 55–78
[2021-02-21] MEDS: morphine 4 MG/ML inj SYRINge IV PRN ×3 (00:05→20:42)
--- NOTE | 2021-02-21 06:27 | NUR ---
REPORT GIVEN TO BRAYDEN/RN PATIENT REMAIN NPO AFTER MIDNIGHT
--- NOTE | 2021-02-21 06:43 | NUR ---
Patient in room PCU 3026. I have received report from ZACARIAS Wise and had the opportunity to ask questions and assume patient care.
[2021-02-21 06:51] LABS: BASOPHILS # (AUTO) 0.1 X10'3 (0-0.2); BASOPHILS % (AUTO) 1.1 % (0-1); EOSINOPHILS # (AUTO) 0.2 X10'3 (0-0.9); EOSINOPHILS % (AUTO) 1.9 % (0-6); HEMATOCRIT 36.1 % (42.0-52.0); HEMOGLOBIN 12.3 g/dl (14.0-17.9); LYMPHOCYTES # (AUTO) 1.4 X10'3 (1.1-4.8); LYMPHOCYTES % (AUTO) 14.8 % (21-51); MEAN CORPUSCULAR HEMOGLOBIN 35.8 PG (27.0-31.0); MEAN CORPUSCULAR VOLUME 105.3 FL (78-98); MONOCYTES # (AUTO) 1.4 X10'3 (0-0.9); MONOCYTES % (AUTO) 14.5 % (2-12); NEUTROPHILS # (AUTO) 6.5 X10'3 (1.8-7.7); NEUTROPHILS % (AUTO) 67.7 % (42-75); PLATELET COUNT 241 X10'3 (140-440); RED BLOOD COUNT 3.43 X10'6 (4.70-6.10); WHITE BLOOD COUNT 9.6 X10'3 (4.5-11.0)
[2021-02-21 07:36] LABS: ALANINE AMINOTRANSFERASE 8 U/L (12-78); ALBUMIN 1.8 G/DL (3.4-5.0); ALBUMIN/GLOBULIN RATIO 0.5 (1.1-1.5); ALKALINE PHOSPHATASE 74 IU/L (46-116); ANION GAP 10 (8-16); ASPARTATE AMINO TRANSFERASE 20 U/L (10-37); BILIRUBIN,TOTAL 0.5 MG/DL (0.1-1.0); BLOOD UREA NITROGEN 4 MG/DL (7-18); BUN/CREATININE RATIO 5.9 (5.4-32.0); CALCIUM 8.4 MG/DL (8.5-10.1); CHLORIDE 107 MMOL/L (99-107); CREATININE 0.68 MG/DL (0.60-1.10); GLUCOSE 89 MG/DL (70-104); MAGNESIUM 1.9 MG/DL (1.5-2.4); PHOSPHORUS 4.6 MG/DL (2.3-4.5); POTASSIUM 3.9 MMOL/L (3.5-5.1); SODIUM 141 MMOL/L (135-145); TOTAL PROTEIN 5.2 G/DL (6.4-8.2); eGFR > 90 ML/MIN
[2021-02-21] MEDS ORDERED: iohexol 300 MG/1 ML 50ml polymer ONE (08:00)
[2021-02-21] MEDS: K, MAG and/or Phos replacement - Verify level? MC SCH (08:00)
[2021-02-21] MEDS: megestrol acetate 400mg/10ml UD oral suspension PO SCH (08:00)
[2021-02-21] MEDS ORDERED: fentaNYL/PF 50MCG/1 ML 2ML syringe ONE (08:00)
[2021-02-21] MEDS: budesonide 0.5mg/2ml UD nebule IH SCH (08:00)
[2021-02-21] MEDS: midodrine 5mg tablet PO SCH ×3 (08:00→16:00)
[2021-02-21] MEDS: famotidine 20mg tablet PO SCH ×2 (08:00→20:48)
[2021-02-21] MEDS ORDERED: midazolam 1 mg/ML 2ml injection ONE (08:00)
[2021-02-21] MEDS ORDERED: LIDOcaine 1%/PF 5ML 10 MG/ML VIAL ONE (08:00)
[2021-02-21] MEDS ORDERED: glucagon, human recombinant 1mg kit ONE (08:30)
[2021-02-21] MEDS ORDERED: ondansetron/PF 4mg/2ml inj ONE (09:34)
[2021-02-21] MEDS ORDERED: zinc oxide ointment 30gm tube TP PRN (10:00)
--- NOTE | 2021-02-21 11:27 | NUR ---
TF Consult: Pt s/p gastrostomy tube today per EMR. Updated TF recs below given PO trends to ensure meeting protein/kcal needs. Bolus TF recs below for this admit and home as well in case to transition. Now receiving routine megace per EMR. Noted -6kg past 4 days likely inaccurate w/ initial wt more consistent w/ pt appearance; true BMI 18. Will continue to monitor for TF tolerance and adjustment needs. Recommendations: 1. Continue regular diet; encourage PO 2. Encourage PO intake and honor food preferences: orange slices WB; applesauce BIDBD; sherbet and fruit cup WL; soup, rolls, Marshallese ice BIDLD; Magic cup and strawberry milkshake WS; No ONS per pt request 3. appetite stimulant per MD 4. Continuous GTF using Jevity 1.2 at 70ml/hr goal; to provide 1680ml volume/day, 2016 kcals, 1361ml water, and 93g protein. 5. Additional water flush 150ml Q4H 6. PALB Q /; daily wts 7. IF transition to bolus feeds during admit recommend: Bolus feeds QID at 0800, 1200, 1600, 1999 using Jevity 1.2 with goal 420ml bolus. Start at 120ml bolus and advance 75ml/bolus as tolerated to goal. 8. IF bolus TF during admit, additional 50ml water flush before and after each bolus feed 9. bowel care per rx HOME BOLUS TF RECS: 1. Bolus feeds via gastrostomy tube at 0800, 1200, 1600, 2000 using Jevity 1.2 or equivalent at 420ml goal bolus. To provide 1680ml volume/day, 2016 kcals, 1361ml water, and 93g protein. 2. additional water flush 50ml before/after bolus feeds 3. Outpatient RD to titrate formula, rate, and free water recs based on pt protein, kcal, and hydration needs Addendum: 02/21/21 at [address] Amended: Links added.
[2021-02-21] MEDS: morphine 2 MG/ML inj. syringe IV PRN (11:48)
[2021-02-21] MEDS ORDERED: POTASSIUM BICARB 20meq eff tab 20 MEQ TABLET.EFF PO PRN ×2 (15:45)
[2021-02-21] MEDS: heparin, porcine 5000 units/ml vial SQ SCH ×2 (16:00→23:30)
--- NOTE | 2021-02-21 18:49 | NUR ---
Problems reprioritized. Patient report given, questions answered & plan of care reviewed with ZACARIAS Lozoya. Pt sitting up resting comfortably. No signs of distress noted. All pt needs met at this time. TF running at 30ml/hr per md order, informed NOC RN to follow md orders and increase as tolerated.
[2021-02-21] MEDS: LOPERAMIDE 2 mg/15 ml oral solution UD PO PRN (20:47)
--- NOTE | 2021-02-21 23:00 | NUR ---
Feeding tube residual =0 , infusing well. Peg flushed as ordered.
[2021-02-21] MEDS: acetaminophen 325mg tablet PO PRN (23:28)
--- NOTE | 2021-02-21 23:34 | NUR ---
Peg feeding increases to 40ml/hr
[2021-02-22] MEDS: albuterol 2.5 MG/3 ML nebule NEB PRN ×2 (00:11→08:54)
[2021-02-22] MEDS: budesonide 0.5mg/2ml UD nebule IH SCH ×2 (00:12→08:54)
[2021-02-22 02:00] VITALS: BP 99/48
[2021-02-22] MEDS: morphine 4 MG/ML inj SYRINge IV PRN ×2 (05:50→10:13)
[2021-02-22 06:08] LABS: BASOPHILS # (AUTO) 0.1 X10'3 (0-0.2); BASOPHILS % (AUTO) 1.2 % (0-1); EOSINOPHILS # (AUTO) 0.2 X10'3 (0-0.9); EOSINOPHILS % (AUTO) 1.8 % (0-6); HEMATOCRIT 34.3 % (42.0-52.0); HEMOGLOBIN 11.5 g/dl (14.0-17.9); LYMPHOCYTES # (AUTO) 1.3 X10'3 (1.1-4.8); LYMPHOCYTES % (AUTO) 15.4 % (21-51); MEAN CORPUSCULAR HEMOGLOBIN 35.4 PG (27.0-31.0); MEAN CORPUSCULAR HGB CONC 33.7 g/dL (33.0-36.5); MEAN PLATELET VOLUME 8.8 FL (7.4-10.4); MONOCYTES # (AUTO) 1.2 X10'3 (0-0.9); MONOCYTES % (AUTO) 13.7 % (2-12); NEUTROPHILS # (AUTO) 5.9 X10'3 (1.8-7.7); NEUTROPHILS % (AUTO) 67.9 % (42-75); PLATELET COUNT 249 X10'3 (140-440); RED BLOOD COUNT 3.26 X10'6 (4.70-6.10); RED CELL DISTRIBUTION WIDTH 15.2 % (11.5-14.5); WHITE BLOOD COUNT 8.7 X10'3 (4.5-11.0)
[2021-02-22 06:18] LABS: ALANINE AMINOTRANSFERASE 10 U/L (12-78); ALBUMIN 1.8 G/DL (3.4-5.0); ALBUMIN/GLOBULIN RATIO 0.5 (1.1-1.5); ALKALINE PHOSPHATASE 75 IU/L (46-116); ANION GAP 7 (8-16); ASPARTATE AMINO TRANSFERASE 18 U/L (10-37); BILIRUBIN,TOTAL 0.4 MG/DL (0.1-1.0); BLOOD UREA NITROGEN 6 MG/DL (7-18); BUN/CREATININE RATIO 7.3 (5.4-32.0); CALCIUM 8.2 MG/DL (8.5-10.1); CHLORIDE 106 MMOL/L (99-107); CREATININE 0.82 MG/DL (0.60-1.10); GLUCOSE 111 MG/DL (70-104); MAGNESIUM 1.8 MG/DL (1.5-2.4); PHOSPHORUS 4.1 MG/DL (2.3-4.5); POTASSIUM 3.7 MMOL/L (3.5-5.1); PREALBUMIN 8.6 MG/DL (19-36); SODIUM 140 MMOL/L (135-145); TOTAL CARBON DIOXIDE 26.9 MMOL/L (24-32); TOTAL PROTEIN 5.3 G/DL (6.4-8.2); eGFR > 90 ML/MIN
--- NOTE | 2021-02-22 06:45 | NUR ---
Feeding infusing well, pt medicated for pain prior to shift change. No signs of any other discomfort noted.
[2021-02-22 07:05] VITALS: BP 99/59
--- NOTE | 2021-02-22 07:16 | NUR ---
TF consult: Already addressed, see below Recommendations: 1. Continue regular diet; encourage PO 2. Encourage PO intake and honor food preferences: orange slices WB; applesauce BIDBD; sherbet and fruit cup WL; soup, rolls, English ice BIDLD; Magic cup and strawberry milkshake WS; No ONS per pt request 3. appetite stimulant per MD 4. Continuous GTF using Jevity 1.2 at 70ml/hr goal; to provide 1680ml volume/day, 2016 kcals, 1361ml water, and 93g protein. 5. Additional water flush 150ml Q4H 6. PALB Q /; daily wts 7. IF transition to bolus feeds during admit recommend: Bolus feeds QID at 0800, 1200, 1600, 1999 using Jevity 1.2 with goal 420ml bolus. Start at 120ml bolus and advance 75ml/bolus as tolerated to goal. 8. IF bolus TF during admit, additional 50ml water flush before and after each bolus feed 9. bowel care per rx HOME BOLUS TF RECS: 1. Bolus feeds via gastrostomy tube at 0800, 1200, 1600, 1999 using Jevity 1.2 or equivalent at 420ml goal bolus. To provide 1680ml volume/day, 2016 kcals, 1361ml water, and 93g protein. 2. additional water flush 50ml before/after bolus feeds 3. Outpatient RD to titrate formula, rate, and free water recs based on pt protein, kcal, and hydration needs Addendum: 02/22/21 at [address] Amended: Links added.
--- NOTE | 2021-02-22 07:44 | NUR ---
UNDER TUBE FEEDING ORDER, STATES TO NOT INCREASE GTUBE PSI PAST 40. PSI IS PRESSURE NOT ML/HOUR. CALLED [facility] TO VERIFY THIS. THEY STATE TO DISREGARD PSI ORDER THIS CAN NOT BE MEASURED, BUT TO NOT PUSH OR FORCE ANYTHING THROUGH THE GTUBE. OF COURSE. [facility] RN STATES OK TO INCREASE GTUBE BY 20ML EVERY 8 HOUR WHICH WAS NOT DONE BY PRIMARY NIGHT RN PUMP IS NOW SET AT 40ML/HR. WILL ASSESS RESIDUAL THIS AM AND CHANGE RATE ACCORDINGLY.
[2021-02-22] MEDS: K, MAG and/or Phos replacement - Verify level? MC SCH (08:00)
--- NOTE | 2021-02-22 10:00 | NUR ---
FEEDING RATE INCREASED TO 60ML PER HOUR PER ORDERS R/T LOW RESIDUAL THIS AM
[2021-02-22] MEDS: midodrine 5mg tablet PO SCH ×2 (10:09→13:08)
[2021-02-22] MEDS: famotidine 20mg tablet PO SCH (10:09)
[2021-02-22] MEDS: heparin, porcine 5000 units/ml vial SQ SCH (10:10)
[2021-02-22] MEDS: megestrol acetate 400mg/10ml UD oral suspension PO SCH (10:14)
[2021-02-22 11:43] VITALS: BP 102/55
--- NOTE | 2021-02-22 13:30 | NUR ---
PAGER ID: [phone] MESSAGE: CHIKIS KNUTSON [phone] PLEASE CLARIFY ORDER TO KEEP K ABOVE 4.5. PT ALSO REQUESTING MALOX ORDER. THANK YOU MICAELA [phone]
[2021-02-22] MEDS ORDERED: potassium Cl 20 mEq SR tablet PO PRN (13:35)
[2021-02-22] MEDS ORDERED: mag hydrox/Alum hydrox/simeth 30ml oral suspension PO PRN (13:35)
[2021-02-22] MEDS ORDERED: HYDR-3965 PO (14:56)
[2021-02-22] MEDS ORDERED: MEGE400O6 PO (14:56)
[2021-02-22] MEDS ORDERED: MIDO5TAB4 PO (14:56)
[2021-02-22 15:00] VITALS: BP 105/61
--- NOTE | 2021-02-22 16:13 | NUR ---
MD LOPEZ ROUNDED ON PT. DISCHARGE ORDERS PLACED. CONTACTED CM. EDWARDS SAID [facility] HASNT APPROVED SUPPLIES YET BUT OK WITH THIS. STATES PT JUST NEEDED SYRINGE AND BOLUS FEEDING EDUCATION AND COULD FEED HIMSELF AN ENSURE TID WITH 100 ML FLUSHES. EXTENSIVE EDUCATION PROVIDED TO PT AND . PT ABLE TO DEMONSTRATE A BOLUS FEED AND FLUSH. WRITTEN EDUCATION PROVIDED ON GTUBE AND GTUBE CARE AND FEEDING WELL. EDUCATION PROVIDED ON HOW TO CARE FOR GTUBE SITE. SITE CDI AT THIS TIME. EXTRA GTUBE SYRINGE PROVIDED TO PT. REVIEWED DISCHARGE MEDICATIONS AND POSSIBLE ASE. PT HAS ACTUAL PRESCRIPTIONS TO TURN INTO [facility] AND PLANS TO GO FIRST THING IN AM. TELE REMOVED AND PT. DRESSED. PT CALLED HIS SON TO COME PICK HIM UP, IV DC'D, PRESSURE BANDAGE APPLIED, CANNULA INTACT. PT. WAITING ON SON TO PICK HIM UP.
--- NOTE | 2021-02-22 16:33 | NUR ---
PT DISCHARGED. LEFT WITH HIS BELONGINGS. HAS A W/C AT HOME.
== END 2021-02-22 16:30 | disposition home health service (06) | DRG 640 ==
LOC: ER 14:17 → ED HOLD 20:38 → ICU 2S 22:23 → PCU 3S 02-20 00:40
PROVIDERS: ADMIT Internal Medicine; ATTEND Internal Medicine
PROC: BW251ZZ Computerized Tomography (CT Scan) of Chest, Abdomen and Pelvis using Low Osmolar Contrast (ICD-10-PCS; 2021-02-12)
PROC: 06HY33Z Insertion of Infusion Device into Lower Vein, Percutaneous Approach (ICD-10-PCS; 2021-02-12)
PROC: 0DH63UZ Insertion of Feeding Device into Stomach, Percutaneous Approach (ICD-10-PCS; principal; 2021-02-21)
PROC: BD12ZZZ Fluoroscopy of Stomach (ICD-10-PCS; 2021-02-21)
DX: E87.6 Hypokalemia (principal); E43 Unspecified severe protein-calorie malnutrition; N39.0 Urinary tract infection, site not specified; N17.9 Acute kidney failure, unspecified; I47.2 Ventricular tachycardia; R64 Cachexia; I95.9 Hypotension, unspecified; I10 Essential (primary) hypertension; J44.9 Chronic obstructive pulmonary disease, unspecified; B19.20 Unspecified viral hepatitis C without hepatic coma; K86.9 Disease of pancreas, unspecified; Z53.20 Procedure and treatment not carried out because of patient's decision for unspecified reasons; G62.9 Polyneuropathy, unspecified; R00.1 Bradycardia, unspecified; Z79.01 Long term (current) use of anticoagulants; Z79.51 Long term (current) use of inhaled steroids; Z79.899 Other long term (current) drug therapy; Z86.711 Personal history of pulmonary embolism; Z68.20 Body mass index [BMI] 20.0-20.9, adult; Z88.8 Allergy status to other drugs, medicaments and biological substances; Z82.5 Family history of asthma and other chronic lower respiratory diseases; Z80.8 Family history of malignant neoplasm of other organs or systems
CPT/HCPCS: 36415; 49440; 70450; 71045; 71260; 74177; 80048; 80053; 80305; 81001; 81003; 82948; 83605; 83690; 83735; 83880; 84100; 84132; 84134; 84145; 84484; 85025; 87040; 87081; 87088; 93005; 93306; 94640; 94760; 96361; 96365; 96366; 96375; 96376; 97110; 97116; 97161; 97530; 99152; 99153; 99291; B4087; C1713; C1729; G0378; J1610; J1644; J2250; J2270; J2405; J2543; J3010; J3475; J3480; J7030; J7050; J7120; J7626; Q9963; Q9967